=== PATIENT | male | born 1950 | race Caucasian/White ===

== ENCOUNTER 2019-06-10 10:47 | Emergency (ER) | payer MEDICARE, OTHER, SELFPAY ==
[2019-06-10] VITALS (8 sets, daily range): BP systolic 108–135; BP diastolic 72–80; PULSE 56–100; RESP 14–20; TEMP 36; O2SAT 96–100
--- NOTE | ~2019-06-10 | XR_ITS ---
EXAMINATION: XR chest 1V portable DATE: 06/10/2019 11:24 INDICATION: Cardiac arrest TECHNIQUE: frontal view of the chest was obtained. COMPARISON: None FINDINGS: Pulmonary vascular congestion in the lower lung zones with increased opacities in the left lower lung zone which could represent pulmonary edema, pneumonia, aspiration and/or atelectasis. No pleural eff usion or pneumothorax. Heart size within normal limits for AP technique. Retrocardiac opacity which c ould represent a hiatal hernia termination of shadows from tortuous aorta and large right atrium. Wid ening of the right acromioclavicular joint consistent with age-indeterminate acromioclavicular joint separation. IMPRESSION: 1. Increased opacities in the left lower lung zone which could represent mild pulmonary edema, pneumo nancy, aspiration, atelectasis or some combination thereof. 2. Possible hiatal hernia. Reviewed, dictated and finalized at location A. GEMENT EXECUTIVE IMPRESSION: 1. Increased opacities in the left lower lung zone which could represent mild p ulmonary edema, pneumonia, aspiration, atelectasis or some combination thereof. 2. Possible hiatal hernia.
--- NOTE | 2019-06-10 10:55 | ED.ARRPALP ---
HPI - Arrhythmia/Palpitations General Chief Complaint: Arrhythmia/Palpitations Stated Complaint: post cardiac arrest Time Seen by Provider: 06/10/19 10:47 Source: patient, EMS and RN notes reviewed Mode of arrival: EMS Limitations: no limitations History of Present Illness HPI narrative: Pt is a 69 y/o male presenting to the ED c/o Cardiac arrest. EMS state the pt presented to an earlier today after experiencing CP starting this morning. Per EMS, the pt had a witnessed collapse at the and went unresponsive and was found to be in V-Fib. EMS state they shocked the pt after CPR was started which immediately brought him into sinus Tachycardia and then administered Amiodarone. Per EMS, the pt has a Hx of A Fib. Pt reports his CP has resolved but is now reporting confusion and nausea. Pt states he faintly remembers going to the but does not remember much beyond that. Pt denies SOB. Onset (ago): unknown Arrhythmia history: atrial fibrillation Associated symptoms: chest pain (Resolved), nausea and other (Confusion) Related Data Home Medications Medication Instructions Recorded Confirmed No Home Medications 06/10/19 06/10/19 Allergies Allergy/AdvReac Type Severity Reaction Status Date / Time latex Allergy Unknown SKIN Verified 06/10/19 11:05 IRRITATION Review of Systems Review of Systems: All systems reviewed & are unremarkable except as noted in HPI and below Cardiovascular: Cardiovascular: Reports chest pain (Resolved) Gastrointestinal: Gastrointestinal: Reports nausea Neurologic: Reports confusion and Reports other (Unresponsive (resolved)) [facility] Past Medical History Medical History Arthritis Osteoarthritis cervical spine RBBB Restless leg syndrome Surgical History Surgical History No significant past surgical history Family History Family History Mother Patient's mother is in good health, Onset Age: 82 Sibling Patient's sister is in good health, Onset Age: 56 Patient's brother is in good health, Onset Age: 68 Father Family history of diabetes mellitus in first degree relative, Onset Age: 87 Patient's father is Social History Social History Smoking status: Never smoker Alcohol intake: never Gender identity (if verbalized by the patient): Male Exam Const: General: alert, acute distress (Mild) and ill appearing Nutritional Appearance: well nourished Other: Elderly HENMT: Mouth: Yes lip normal Eyes: Conjunctivae: conjunctivae normal Resp: Effort & Inspection: normal respiratory effort Auscultation: clear to auscultation bilaterally Cardio: Rhythm: abnormal rhythm irregularly irregular Back/Spine/Pelvis: Other: Full ROM Skin: General skin exam: normal color Other: Warm; Dry Neuro: General: patient oriented x3 Speech: normal speech Extrem: General: full ROM Psych: Mental Status: mental status grossly normal Affect: normal affect Course Vital Signs Vital signs: Vital Signs Temperature 36.0 C L 06/10/19 10:58 Pulse Rate 100 06/10/19 10:58 Respiratory Rate 14 06/10/19 10:58 Blood Pressure 108/80 06/10/19 10:58 Pulse Oximetry 96 06/10/19 10:58 Temperature 36.0 C L 06/10/19 10:58 Pulse Rate 66 06/10/19 16:09 Respiratory Rate 20 06/10/19 16:09 Blood Pressure 117/76 06/10/19 16:09 Pulse Oximetry 99 06/10/19 16:09 MDM - Arrhythmia/Palpitations MDM Narrative Medical decision making narrative: He had a v-fib arrest while at urgent care. He was defibrillated with conversion to a-fib and given a bolus of amiodarone. While here he converted to NSR. He asked to be transferred to [place]. The transfer was arranged, but no bed available. Medical Records Attestation: I reviewed the micheal
--- NOTE | 2019-06-10 11:07 | ECG_ITS ---
Measurements Intervals [place] Rate: 112 P: CT: 0 QRS: -26 QRSD: 116 T: 29 QT: 351 QTc: 480 Interpretive Statements ATRIAL FIBRILLATION WITH RAPID VENTRICULAR RESPONSE INCOMPLETE RIGHT BUNDLE BRANCH BLOCK MINIMAL Q WAVES- LATERAL LEADS BASELINE ARTIFACT- I, II, AVR ABNORMAL ECG Electronically Signed On 06-10-2019 11:17:36 [place]AN by Eddie Coombs D.O.
[2019-06-10 11:21] LABS: Basophils Percent Auto 0.6 % (0.2-1.2); Eosinophils Absolute Auto 0.2 K/mm3 (0-0.3); Eosinophils Percent Auto 3.4 % (0-4.4); Hemoglobin 14.2 g/dL (14.0-18.0); Immature Granulocyte Absolute 0.08 K/mm3 (0.00-0.031); Immature Granulocyte Percent A 1.3 % (0-0.5); Lymphocytes Absolute Auto 2.29 K/mm3 (0.9-3.2); Lymphocytes Percent Auto 36.9 % (18.3-44.2); Mean Corpuscular Hemoglobin 30.8 pg (26-34); Mean Corpuscular Volume 93.3 fl (80-100); Mean Platelet Volume 9.2 fl (7.4-10.4); Monocytes Absolute Auto 0.5 K/mm3 (0.1-0.6); Monocytes Percent Auto 7.6 % (2.6-8.5); Neutrophils Absolute Auto 3.1 K/mm3 (1.3-6.7); Neutrophils Percent Auto 50.2 % (45.5-73.1); Platelet Count Result 187 k/mm3 (150-375); Red Blood Count 4.61 M/mm3 (4.6-6.20); Red Cell Distribution Width 13.6 % (11.5-14.5); White Blood Count 6.2 K/mm3 (4.5-10.0)
[2019-06-10 11:32] LABS: INR 1.1; Partial Thromboplastin Time 28.1 SECONDS (22.3-36.8); Prothrombin Time 13.5 Seconds (11.1-14.7)
[2019-06-10 11:34] LABS: Blood Urea Nitrogen 18 mg/dL (9-20); Calcium 8.6 mg/dL (8.4-10.2); Carbon Dioxide 24 mmol/L (22-30); Chloride 105 mmol/L (98-107); Estimated Glomerular Filt Rate > 60; Glucose 179 mg/dL (75-110); Potassium 3.3 mmol/L (3.4-5.0); Sodium 140 mmol/L (137-145)
[2019-06-10] MEDS: ONDANSETRON INJ 4 MG/2 ML VIAL IV PUSH (11:46)
[2019-06-10 11:47] LABS: NT Pro B Type Natriuretic Pept 108 PG/ML (5-100)
--- NOTE | 2019-06-10 12:23 | ECG_ITS ---
Measurements Intervals [place] Rate: 57 P: 29 MO: 180 QRS: -26 QRSD: 115 T: 51 QT: 428 QTc: 418 Interpretive Statements SINUS BRADYCARDIA INCOMPLETE RIGHT BUNDLE BRANCH BLOCK BORDERLINE ECG Electronically Signed On 06-10-2019 18:41:10 RESTAURANT MAINTENANCE TECHNICIAN by Eddie Coombs D.O.
--- NOTE | 2019-06-10 14:33 | ED.GENADULT ---
HPI - General Adult General Chief complaint: Arrhythmia/Palpitations Stated complaint: post cardiac arrest Time Seen by Provider: 06/10/19 10:47 Source: family () Mode of arrival: other (Private vehicle) Limitations: no limitations and physical limitation History of Present Illness HPI narrative: 69-year-old male arrived to the [facility] approximately 1019 this a.m. and signed into the kiosks at the [facility]. Shortly after arrival patient's came up to the registrar tapped on the glass and stated that her went unresponsive. The register notified myself as well as the nurses that there was an unresponsive patient in the front of the waiting room. When we went out to the waiting room patient was limp, unresponsive not responding to painful stimuli. Patient will had agonal breathing. Patient was lowered to the floor and there was no pulse felt so CPR was started by this provider. Approximately 4 rounds of CPR was provided to the patient by this provider as well as Francisco Lieberman RN. 911 was contacted. JAYLENE Dye obtain the crash cart and the Ambu bag was applied to the patient while hooked up to 25 L of O2. On arrival of EMS CPR continued. They applied the AED and patient was shocked once. After about 1 shock, 1 epi that was given by EMS and approximately 6 rounds of CPR. Patient started to flutter his eyes. A pulse was obtained. Patient was breathing on his own. Patient was put on a nonrebreather at 15 L. An IO was placed by EMS to the left lower extremity. An 18-gauge IV was started by Francisco Lieberman to the left AC. According to patient's patient was coming in today with complaints of chest pain that started this morning as well as hypertension. Patient did start to wake up and talk to this provider. Patient states that he did have a history of hypertension but denies any medication. Patient denies any history of an MD or stroke in the past. Patient was denying any chest pain at the time when he woke up. Patient was assisted to the EMS stretcher by EMS personnel. Patient was sitting up awake, alert and talking prior to leaving the [facility]. Patient did have an episode of nausea and vomiting prior to leaving. This provider attempted to call [facility] and spoke with Dr. Taylor and let him know about the cardiac arrest patient that was in the [facility] waiting room that is in route. Discussed with him at the time I did not know the patient's name and only had a brief history. Notified him that we were able to get out of his that he is allergic to sulfa and he does have a history of hypertension but no meds. Patient was originally coming in today with complaints of chest pain and high blood pressure. Patient would be in route to [facility] for further evaluation by EMS. Related Data Home Medications Medication Instructions Recorded Confirmed No Home Medications 06/10/19 06/10/19 Allergies Allergy/AdvReac Type Severity Reaction Status Date / Time latex Allergy Unknown SKIN Verified 06/10/19 11:05 IRRITATION Review of Systems Review of Systems: Narrative: CONSTITUTIONAL: Denies fever, chills, or sweats. EYES: Denies visual changes, redness, or discharge. ENT: Denies rhinorrhea, congestion, sore throat, or otalgia. CARDIOVASCULAR: Positive chest pain, palpitations, denies edema. RESPIRATORY: Denies cough or dyspnea. GASTROINTESTINAL: Denies abdominal pain, nausea, vomiting, or diarrhea. GENITOURINARY: Denies dysuria or hematuria. SKIN: Denies rash or itching. MUSCULOSKELETAL: Denies back pain, joint pain, or myalgia. NEUROLOGIC: Denies headache, numbness, or weakness. PSYCHIATRIC: Denies anxiety or depression. [facility] Past Medical History Medical History Arthritis Osteoarthritis cervical spine RBBB Restless leg syndrome Surgical History Surgical History No signific
--- NOTE | 2019-06-10 17:29 | PC.NURSE ---
[facility] here to transport patient to [facility]. Assuming care at this time.
== END 2019-06-10 17:35 | disposition short-term general hospital (02) ==
PROVIDERS: Emergency Provider Emergency Medicine; PCP Emergency Medicine
DX: I46.9 Cardiac arrest, cause unspecified (principal); G25.81 Restless legs syndrome; I48.91 Unspecified atrial fibrillation; I45.10 Unspecified right bundle-branch block; R94.31 Abnormal electrocardiogram [ECG] [EKG]; R91.8 Other nonspecific abnormal finding of lung field; R00.1 Bradycardia, unspecified
CPT/HCPCS: 36415; 71045; 80048; 83880; 84484; 85025; 85610; 85730; 93005; 96374; 99291; J2405

== ENCOUNTER 2019-09-26 09:56 | Outpatient (CLI) | payer MEDICARE, OTHER, SELFPAY ==
[2019-09-26 10:58] LABS: Alanine Aminotransferase 43 U/L (4-50); Albumin Level 4.1 g/dL (3.5-5.1); Alkaline Phosphatase 276 U/L (38-126); Aspartate Amino Transferase 36 U/L (17-59); Bilirubin,Total 0.7 mg/dL (0.2-1.3); Blood Urea Nitrogen 20 mg/dL (9-20); Calcium 9.3 mg/dL (8.4-10.2); Carbon Dioxide 28 mmol/L (22-30); Chloride 103 mmol/L (98-107); Cholesterol 170 mg/dL (0-200); Estimated Glomerular Filt Rate > 60; Glucose 101 mg/dL (75-110); HDL Direct 41 mg/dL; Sodium 139 mmol/L (137-145); Triglycerides 61 mg/dL (<150)
[2019-09-26 11:17] LABS: LDL Cholesterol Direct 92 mg/dL
[2019-09-29 13:30] LABS: Vitamin D 1,25 (OH)2 Total 61 pg/mL (18-72); Vitamin D2 1,25 (OH)2 <8 pg/mL; Vitamin D3 1,25 (OH)2 61 pg/mL
== END 2019-09-26 09:57 | disposition home or self-care (01) ==
PROVIDERS: PCP Emergency Medicine; Visit Provider Emergency Medicine
DX: Z13.6 Encounter for screening for cardiovascular disorders (principal); E55.9 Vitamin D deficiency, unspecified; E78.5 Hyperlipidemia, unspecified
CPT/HCPCS: 36415; 80053; 80061; 82652

== ENCOUNTER 2019-09-29 11:38 | Outpatient (CLI) | payer MEDICARE, OTHER, SELFPAY ==
--- NOTE | ~2019-09-29 | XR_ITS ---
XR knee LT 2V DATE: 09/29/2019 12:04 INDICATION: Generalized pain of left knee after fall 5 weeks ago TECHNIQUE: AP and lateral views COMPARISON: None FINDINGS: Superior pole patellar enthesopathy at quadriceps tendon insertion. There is minimal periar ticular spurring of the patella. The joint spaces are well preserved. No radiopaque intra-articular l oose body or chondrocalcinosis. No fracture, dislocation, periosteal reaction or bone destruction or joint effusion. IMPRESSION: Superior pole patellar enthesopathy Minimal osteoarthritis at patellofemoral joint Reviewed, dictated and finalized at location A.
--- NOTE | ~2019-09-29 | XR_ITS ---
XR shoulder LT min 2V DATE: 09/29/2019 12:04 INDICATION: Left shoulder pain following fall 5 weeks ago TECHNIQUE: 4 views COMPARISON: None FINDINGS: There is a left-sided transvenous pacemaker device. No fracture, dislocation, periosteal re action, bone destruction or abnormal soft tissue calcification of the left shoulder. IMPRESSION: No significant abnormality of left shoulder Reviewed, dictated and finalized at location A.
== END 2019-09-29 11:39 | disposition home or self-care (01) ==
PROVIDERS: PCP Emergency Medicine; Visit Provider Emergency Medicine
DX: M25.562 Pain in left knee (principal); M25.512 Pain in left shoulder; M76.52 Patellar tendinitis, left knee; M17.12 Unilateral primary osteoarthritis, left knee
CPT/HCPCS: 73030; 73560

== ENCOUNTER 2019-10-23 13:40 | Outpatient (CLI) | payer MEDICARE, OTHER, SELFPAY ==
--- NOTE | ~2019-10-23 | XR_ITS ---
EXAMINATION: XR hip BI 2V w AP pelvis EXAM DATE: 10/23/2019 14:25 INDICATION: Initial encounter following injury, with pain of the pelvis, hips. TECHNIQUE: Each hip imaged independently (separate right and also left hip) 'frog leg' and frontal p rojections for interpretation. Frontal projection pelvis. There is no prior study for comparison. FINDINGS: No radiographic evidence of hip avascular necrosis. There is moderate symmetric bilateral hip primary osteoarthritis. There are no acute fractures or dislocations identified. There is no sub cutaneous gas. Calcifications in the pelvis are believed to be phleboliths. There are no radiopaque foreign bodies. IMPRESSION: 1. Hip, pelvis exam without acute osseous findings. 2. Moderate symmetric hip osteoarthritis. Reviewed, dictated and finalized at location B.
--- NOTE | ~2019-10-23 | XR_ITS ---
EXAMINATION: XR wrist RT min 3V EXAM DATE: 10/23/2019 14:25 INDICATION: Initial encounter following injury, with pain of the right wrist. TECHNIQUE: Right wrist frontal, frontal with ulnar deviation, oblique and lateral projections obtain ed and reviewed. There is no prior study for comparison. FINDINGS: Possible mild widening of the scapholunate joint space. There is mild triscaphe and 1st ca rpometacarpal joint primary osteoarthritis. There are no bony erosions identified. There are no acute fractures or dislocations identified. There is no subcutaneous gas. The soft tissue is unremarkabl e. There are no radiopaque foreign bodies. IMPRESSION: 1. Mild right wrist osteoarthritis. 2. 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 Reviewed, dictated and finalized at location B.
--- NOTE | ~2019-10-23 | XR_ITS ---
EXAMINATION: XR hand LT min 3V, XR wrist LT min 3V DATE: 10/23/2019 14:25 INDICATION: Left hand and wrist pain post fall TECHNIQUE: 1. Posteroanterior, ulnar deviation, oblique, and lateral views of the left wrist were obtained. 2. Dorsal palmar, oblique and lateral views of the left hand were obtained. COMPARISON: None. FINDINGS: Alignment of the hand and wrist are normal. No fracture identified. Polyarticular osteoarthritis, mo derate at the first carpometacarpal, first metacarpophalangeal and second and third distal interphala ngeal joints and mild at the triscaphe, midcarpal and remaining distal interphalangeal joints. Small. Likely degenerative loose osteochondral body at the ulnar side of the first carpometacarpal joint. N o focal soft tissue swelling. IMPRESSION: 1. Moderate polyarticular osteoarthritis. No acute osseous abnormality. Reviewed, dictated and finalized at location A. IMPRESSION: 1. Moderate polyarticular osteoarthritis. No acute osseous abnormality.
== END 2019-10-23 13:41 | disposition home or self-care (01) ==
PROVIDERS: PCP Emergency Medicine; Visit Provider Emergency Medicine
DX: R60.9 Edema, unspecified (principal); M79.606 Pain in leg, unspecified; M16.0 Bilateral primary osteoarthritis of hip; M19.042 Primary osteoarthritis, left hand; M19.032 Primary osteoarthritis, left wrist; M19.031 Primary osteoarthritis, right wrist
CPT/HCPCS: 73110; 73130; 73521

== ENCOUNTER 2019-11-15 09:46 | Outpatient (CLI) | payer MEDICARE, OTHER, SELFPAY ==
--- NOTE | ~2019-11-15 | XR_ITS ---
EXAMINATION: XR fl inj shoulder LT - MR/CT DATE: 11/15/2019 10:33 INDICATION: Left shoulder pain. TECHNIQUE: A time-out was performed to verify the patient's name, date of , and procedure to b e performed. The procedure including the risks, benefits, and alternatives was discussed with the pat ient. Risks discussed included bleeding and infection. The patient understood the risks and agreed to proceed. The skin overlying the left glenohumeral joint was prepped and draped in usual sterile fash ion. Anesthetic was administered with 1% lidocaine subcutaneously. A 22 G needle was advanced under fluoroscopic guidance into the joint. Subsequently, injectate consisting of 12 mL of 1% lidocaine a nd 1:2 Omnipaque 240 was instilled. The needle was removed and the entry site was cleaned and dresse d. There were no immediate complications. Fluoroscopy exposure time was 0.1 minutes. The total numbe r of images was 3. FINDINGS: Real-time fluoroscopy demonstrates the needle and contrast in the left glenohumeral joint. IMPRESSION: 1. Successful left glenohumeral joint injection of contrast for subsequent CT arthrography. Reviewed, dictated and finalized at location A. IMPRESSION: 1. Successful left glenohumeral joint injection of contrast for subsequent CT a rthrography.
--- NOTE | ~2019-11-15 | CT_ITS ---
EXAMINATION: CT shoulder LT w con DATE: 11/15/2019 10:39 INDICATION: Left shoulder pain. TECHNIQUE: Computed tomography (CT) of the left shoulder was performed without intravenous contrast a fter intra-articular injection of contrast (CT arthrogram). Automated exposure control and iterative reconstruction technique were employed. The dose-length product was 245.73 mGy-cm. COMPARISON: Left shoulder radiographs 06/29/2019 FINDINGS: The acromion undersurface is curved in morphology (type II). There is mild acromial clavicu lar joint osteoarthritis. Subacromial spurring is noted. There is a full-thickness tear of the juncti on of supraspinatus and infraspinatus tendons measuring 5 mm anterior to posterior by 3.0 cm proximal to distal. There is a bursal sided partial-thickness tear of posterior infraspinatus tendon. There i s no asymmetric fatty atrophy of the rotator cuff muscle bellies. Biceps tendon is in bicipital groov e. The glenoid cartilage is normal. The humeral head cartilage is normal. There is contrast in the gl enohumeral joint and subacromial/subdeltoid bursa. A left chest pacer is noted. IMPRESSION: 1. Full-thickness rotator cuff tear. 2. Mild acromioclavicular joint osteoarthritis. Reviewed, dictated and finalized at location A.
== END 2019-11-15 09:47 | disposition home or self-care (01) ==
PROVIDERS: PCP Emergency Medicine; Visit Provider Orthopaedic Surgery
DX: M19.012 Primary osteoarthritis, left shoulder (principal); M75.122 Complete rotator cuff tear or rupture of left shoulder, not specified as traumatic
CPT/HCPCS: 23350; 73201; 77002; Q9966; Q9967

== ENCOUNTER 2020-01-08 11:51 | Outpatient (CLI) | payer MEDICARE, OTHER, SELFPAY ==
--- NOTE | 2020-01-08 12:08 | ECG_ITS ---
Measurements Intervals [place] Rate: 60 P: 158 OR: 179 QRS: -22 QRSD: 105 T: 35 QT: 398 QTc: 398 Interpretive Statements ELECTRONIC ATRIAL PACEMAKER INCOMPLETE RIGHT BUNDLE BRANCH BLOCK BORDERLINE ECG Electronically Signed On 01-08-2020 13:06:44 CDT by Eddie Coombs D.O.
== END 2020-01-08 11:52 | disposition home or self-care (01) ==
PROVIDERS: PCP Emergency Medicine; Visit Provider Emergency Medicine
DX: I49.01 Ventricular fibrillation (principal); I45.10 Unspecified right bundle-branch block; R94.31 Abnormal electrocardiogram [ECG] [EKG]; Z95.0 Presence of cardiac pacemaker
CPT/HCPCS: 93005

== ENCOUNTER 2020-03-05 00:06 | Outpatient (CLI) | payer MEDICARE, OTHER, SELFPAY ==
[2020-03-05 19:47] LABS: SARS-CoV-2 RNA PCR Negative
== END 2020-03-05 00:07 | disposition home or self-care (01) ==
LOC: ANHCOVIDDT 00:06
PROVIDERS: PCP Emergency Medicine; Visit Provider Orthopaedic Surgery
DX: Z01.812 Encounter for preprocedural laboratory examination (principal); Z20.828 Contact with and (suspected) exposure to other viral communicable diseases
CPT/HCPCS: 87635; C9803; U0003

== ENCOUNTER 2020-03-08 00:04 | Day surgery (SDC) | payer MEDICARE, OTHER, SELFPAY ==
[2020-03-04 15:42] VITALS: BMI 23.6
[2020-03-08] VITALS (7 sets, daily range): BP systolic 149–164; BP diastolic 73–93; PULSE 62–73; RESP 14–20; TEMP 36.2–36.9; O2SAT 94–98
[2020-03-08] MEDS: CELECOXIB 200 MG CAPSULE PO (07:07)
[2020-03-08] MEDS: ACETAMINOPHEN 500 MG TABLET 1000 MG PO (07:07)
[2020-03-08] MEDS: LACTATED RINGERS 1,000 ML 30 ML IV CONT ×2 (07:08→09:19)
--- NOTE | 2020-03-08 07:13 | WPDANESEPPF ---
Anes - Initial Pre Proc Eval Procedure: Operation Date: 03/08/20 07:30 Proposed Procedures p Left Open Rotator Cuff Repair - Magdy Esqueda MD Date/Time: 03/08/20 07:13 Surgeon: Madgy Esqueda MD Pre Op Diagnosis: left rotator cuff tear Patient Data Age: 70 Gender: M Height: 5 ft 10 in Weight: 74.85 kg Allergies Allergy/AdvReac Type Severity Reaction Status Date / Time No Known Allergies Allergy Verified 03/08/20 06:23 Home Medications Medication Instructions Recorded Confirmed Type vdmywhys-umb-lqnfz acid 300 1 tablet PO DAILY 06/23/19 03/08/20 History mcg-lycopene 600 mcg-lutein 300 mcg tablet glucosamine sulfate 500 mg tablet 500 mg PO DAILY tablet 11/02/19 03/08/20 History atorvastatin 80 mg tablet 80 mg PO DAILY tablet 11/03/19 03/08/20 History metoprolol tartrate 25 mg tablet 6.25 mg PO BID tablet 11/03/19 03/08/20 History acetaminophen 500 mg capsule 500 mg PO Q6H PRN 11/29/19 03/08/20 History aspirin 81 mg tablet,delayed 81 mg PO DAILY 11/29/19 03/08/20 History release chlorhexidine gluconate 4 % 1 applic TOPICAL ONCE #237 ml 01/18/20 03/04/20 Rx topical liquid Patient hx anesthesia problems: none Family hx anesthesia problems: none PMFSH Past Medical History Medical History Arthritis ASHD (arteriosclerotic heart disease) Fall HLD (hyperlipidemia) 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 Knee pain, left Osteoarthritis cervical spine Preoperative clearance RBBB Restless leg syndrome Rotator cuff tear, left Scapho-lunate dissociation Shoulder pain, left Transmural acute inferior myocardial infarction, initial hospitalization Ventricular fibrillation Vision abnormalities Surgical History Surgical History No significant past surgical history Family History Family History Mother Patient's mother is in good health, Onset Age: 82 Sibling Patient's sister is in good health, Onset Age: 56 Patient's brother is in good health, Onset Age: 68 Father Family history of diabetes mellitus in first degree relative, Onset Age: 87 Patient's father is Social History Social History Smoking packs per day: 1 Smoking cigarettes per day: 20.0 Years smoked: 10 Smoking pack-years: 10.00 Smoking status: Former smoker Tobacco type: cigarettes Smoking end date: 04/26/79 Alcohol intake: never Living arrangements: with family Gender identity (if verbalized by the patient): Male Spiritual care concerns: No Anes - Eval Final PreProcedure Day of Procedure 03/08/20 07:13 Patient weight: normal Heart: regular rate and rhythm Lungs: clear to auscultation Airway: Mallampati scale class II Neurological: alert and oriented Last oral intake: >/= 8 hours ASA classification: III Emergent: no Anesthetic plan: proceed Anesthesia type and monitoring: general ETT and standard monitoring Other findings: magnet on defib interrogate post procedure Informed Consent: The patient's anesthetic plan and its attendant risks and benefits were discussed with the patient/family/POA. Questions were solicited and answers provided to the satisfaction of the patient/family/POA.
--- NOTE | 2020-03-08 07:28 | WPDHPUPDATE1 ---
History and Physical Update Update Date/Time: 03/08/20 07:28 History and Physical has been reviewed, including an updated exam of the patient. There are NO changes in the patient's condition. Risks, benefits, and alternatives have been discussed and questions answered. Patient agrees to proceed with procedure.
[2020-03-08] MEDS: ceFAZolin 2 GM/D5W 50 ML 2 GM/50 ML BAG IVPB (07:37)
--- NOTE | 2020-03-08 08:25 | WPDANESPNB ---
Anes - Peripheral Nerve Block Date/Time: 03/08/20 08:25 I have discussed with the patient/family/POA the placement of a peripheral nerve block for post-operative pain management, including associated risks, benefits, complications, and side effects. Alternative methods of post-operative analgesia were detailed. Questions were solicited and answers provided to the satisfaction of the patient/family/POA. Time-Out: A pre-procedural Time-Out was completed immediately before starting the procedure and confirmed: Patient Identification, Site, Procedure, Patient Position and the Availability of Requisite Equipment. Clinical Indications: Acute post-operative pain management requested by the operative surgeon. Nerve Block Insertion Note Anes-nerve block: interscalene left Patient position: other (sitting) Skin prep: chlorhexidine Needle: 22 gauge, stimulating, insulated echogenic needle. Needle length: 50 mm Technique: nerve stimulation lost at (mA) (0.3) and ultrasound Technique comment: mid2mg [id number] Injectate: bupivacaine 0.5% with epi 5 mcg/ml (30ml no epi) and dexamethasone (mg) (4) Observations: tolerated well Complications: none Procedure start time:: 719 Procedure end time:: 727
--- NOTE | 2020-03-08 08:41 | SUR.OPER ---
Patient stated in preop, during initial interview with this manager construction, that strength and mobility is limited in left upper extremity prior to anesthesia block and procedure. Patient stated that this is residual complications from previous falls/injuries.
--- NOTE | 2020-03-08 09:02 | PM.PROC ---
Procedure Note - Detailed Date of procedure: 03/08/20 Pre-op diagnosis: left rotator cuff tear Post-op diagnosis: same Procedure performed: REPAIR OF LEFT ROTATOR CUFF Description of procedure: THE PATIENT WAS TAKEN TO THE OPERATING ROOM AND THEN INTUBATED AND PLACED IN THE BEACH CHAIR POSITION. THE LEFT UPPER EXTREMITY WAS PREPPED AND DRAPED IN THE NORMAL STERILE FASHION. AN INCISION WAS MADE IN BETWEEN THE MODESTO-LATERAL ACROMION AND THE AC JOINT. THE FASCIA WAS IDENTIFIED. NEXT A MINI OPEN INCISION WAS MADE THROUGH THE DELTOID MUSCLE EXPOSING THE SUBACROMIAL SPACE. A LIMITED ACROMIOPLASTY WAS PREFORMED. THE ROTATOR CUFF WAS IDENTIFIED. THERE WAS A FULL THICKNESS TEAR TO A LARGE PART OF THE CUFF. THERE WAS NO RETRACTION. THERE WAS ALSO A VERTICAL COMPONENT TO THE TEAR AT THE JUNCTION OF THE INFRASPINATUS AND THE SUPRASPINATUS THE TEAR MEASURED ABOUT 2 CM FROM ANTERIOR TO POSTERIOR. THE GREATER TUBEROSITY WAS DEBRIDED TO BLEEDING BONE. 2 ATHREX 5.5 SUTURE ANCHORS WERE PLACED IN TO GOOD BONE AND HAD VERY GOOD BITES. CLARA-KAL TYPE REPAIRS WERE DONE TO THE ROTATOR CUFF AND THERE WAS GOOD APPROXIMATION TO THE GREATER TUBEROSITY. NEXT THE VERTICAL COMPONENT OF THE TEAR WAS APPROXIMATED WITH 0 VICRYL. THE REPAIR WAS EXCELLENT. THERE WAS NO IMPINGEMENT ON THE REPAIR FROM THE ACROMION WITH RANGE OF MOTION. THE WOUND WAS IRRIGATED WITH COPIOUS AMOUNTS OF ANTIBIOTIC SOLUTION. THE DELTOID MUSCLE WAS REPAIRED WITH #2 FIBER WIRE AND 0 VICRYL SUTURE. THE SUBCUTANEOUS LAYER WAS APPROXIMATED WITH 2-0 VICRYL. THE SKIN WAS APPROXIMATED WITH 3-0 QUIL AND DERMABOND. STERILE DRESSING WAS APPLIED. PATIENT WAS EXTUBATED. Anesthesia: GETA Surgeon: Magdy Esqueda MD Estimated blood loss (mL): 20 Complications: No immediate complications Condition: stable Disposition: PACU
== END 2020-03-08 11:20 | disposition home or self-care (01) ==
PROVIDERS: PCP Emergency Medicine; Visit Provider Orthopaedic Surgery
PROC: (CPT 23420; principal; 2020-03-08 07:30)
DX: S46.012A Strain of muscle(s) and tendon(s) of the rotator cuff of left shoulder, initial encounter (principal); W11.XXXA Fall on and from ladder, initial encounter; G89.18 Other acute postprocedural pain; I25.10 Atherosclerotic heart disease of native coronary artery without angina pectoris; E78.5 Hyperlipidemia, unspecified; I45.10 Unspecified right bundle-branch block; Z95.810 Presence of automatic (implantable) cardiac defibrillator; I25.2 Old myocardial infarction; G25.81 Restless legs syndrome; Z87.891 Personal history of nicotine dependence
CPT/HCPCS: 23410; 64415; A9270; C1713; J0330; J0690; J1100; J2250; J2370; J2405; J2704; J3010; J7120

== ENCOUNTER 2020-06-18 07:47 | Outpatient (CLI) | payer MEDICARE, OTHER, SELFPAY ==
[2020-06-18 08:20] LABS: Alanine Aminotransferase 20 U/L (4-50); Albumin Level 4.4 g/dL (3.5-5.1); Alkaline Phosphatase 106 U/L (38-126); Anion Gap 4 mmol/L (8-16); Aspartate Amino Transferase 30 U/L (17-59); Bilirubin,Total 0.6 mg/dL (0.2-1.3); Blood Urea Nitrogen 23 mg/dL (9-20); Calcium 9.2 mg/dL (8.4-10.2); Carbon Dioxide 34 mmol/L (22-30); Chloride 105 mmol/L (98-107); Cholesterol 201 mg/dL (0-200); Estimated Glomerular Filt Rate > 60; Glucose 96 mg/dL (75-110); HDL Direct 61 mg/dL; Potassium 4.2 mmol/L (3.4-5.0); Sodium 143 mmol/L (137-145); Triglycerides 101 mg/dL (<150)
[2020-06-18 08:31] LABS: LDL Cholesterol Direct 97 mg/dL
[2020-06-18 09:37] LABS: Prostate Specific Antigen 1.2 ng/mL (< OR = 4.0)
== END 2020-06-18 07:48 | disposition home or self-care (01) ==
PROVIDERS: PCP Emergency Medicine; Visit Provider Emergency Medicine
DX: E78.5 Hyperlipidemia, unspecified (principal); Z12.5 Encounter for screening for malignant neoplasm of prostate
CPT/HCPCS: 36415; 80053; 80061; 84153; G0103

== ENCOUNTER 2020-06-21 14:40 | Outpatient (CLI) | payer MEDICARE, OTHER, SELFPAY ==
--- NOTE | ~2020-06-21 | CT_ITS ---
EXAMINATION: CTA chest DATE: 06/21/2020 15:07 INDICATION: Thoracic aortic ectasia. TECHNIQUE: Computed tomographic angiography (CTA) of the chest was performed with 100 mL Omnipaque-35 0 intravenous contrast. Automated exposure control and iterative reconstruction technique were employ ed. The dose-length product was 274.94 mGy-cm. Maximum intensity projection 3D-reconstructions of the aorta and other arteries were constructed by the technologist on a separate workstation. COMPARISON: None. FINDINGS: The lungs demonstrate mild atelectasis. There is a 4 mm nodule in right upper lobe, likely benign. A calcified right lung nodule is consistent with old granulomatous disease. No pleural effusi on. There is normal. No pericardial effusion. There is a left chest wall pacer with leads in the righ t atrium and right ventricle. There is a 1.4 cm cyst in the liver. There is a 3.3 cm cyst in right ki dney. The aorta measures 4.3 cm at the sinuses of Valsalva, 3.6 cm at the sinotubular junction, 3.9 c m in the mid ascending aorta, 3.2 cm at the aortic isthmus, and 3.1 cm in mid descending aorta. There is mild thoracic spondylosis. There is mild chronic height loss of T7 and T8 vertebral bodies. IMPRESSION: 1. Ectasia of ascending aorta measuring up to 4.3 cm at the sinuses of Valsalva. Reviewed, dictated and finalized at location A. OFFICER IMPRESSION: 1. Ectasia of ascending aorta measuring up to 4.3 cm at the sinuses of Valsalva .
== END 2020-06-21 14:41 | disposition home or self-care (01) ==
LOC: ANHIMG 14:47
PROVIDERS: PCP Emergency Medicine; Visit Provider Internal Medicine Cardiovascular Disease
DX: I77.810 Thoracic aortic ectasia (principal)
CPT/HCPCS: 71275; Q9967

== ENCOUNTER → 2020-08-16 09:20 | Outpatient (CLI) | payer MEDICARE, OTHER, SELFPAY ==
--- NOTE | ~2020-08-16 | CT_ITS ---
EXAMINATION: CT lumbar spine wo con DATE: 08/16/2020 10:06 INDICATION: Lumbar radiculopathy with low back and leg pain. TECHNIQUE: Computed tomography (CT) of the lumbar spine was performed without intravenous contrast. A utomated exposure control and iterative reconstruction technique were employed. The dose-length produ ct was 571.86 mGy-cm. COMPARISON: None FINDINGS: Bilateral hypoplastic riblets at T12. 11 degree lumbar levoscoliosis measured between L2 and L4. Sagi ttal alignment is normal. Vertebral body heights are normal. No fracture. Moderate right-sided predom inant disc height loss at L3-L4. Mild disc height loss at L4-L5. 3.3 similar right renal cyst. 2 mm n onobstructing stone at the lower pole of the right kidney. Paravertebral soft tissues are otherwise u nremarkable. The following disc levels are specifically discussed: T12-L1: Disc is bulging. There is mild bilateral facet joint osteoarthritis. There is no neural shahid inal stenosis. There is mild central canal stenosis. L1-L2: Disc is bulging. There is mild to moderate bilateral facet joint osteoarthritis. There is mild bilateral neural foraminal stenosis. There is mild central canal stenosis. L2-L3: Disc is bulging. There is mild to moderate bilateral facet joint osteoarthritis. There is mild bilateral neural foraminal stenosis. There is mild to moderate central canal stenosis. L3-L4: Disc is bulging. There is mild hypertrophy of the ligamentum flavum. There is mild right and m ild to moderate left facet joint osteoarthritis. There is moderate right and mild to moderate left ne ural foraminal stenosis. There is moderate to severe central canal stenosis. L4-L5: Disc is bulging with right foraminal zone L4 inferior endplate osteophyte. There is mild hyper trophy of the ligamentum flavum. There is moderate left and mild to moderate right facet joint osteoa rthritis. There is moderate left and moderate to severe right neural foraminal stenosis. There is mod erate central canal stenosis. L5-S1: Disc is mildly bulging. There is mild bilateral facet joint osteoarthritis. There is moderate left and mild right neural foraminal stenosis. There is no central canal stenosis. IMPRESSION: 1. Moderate lumbar spondylosis. 2. 2 mm nonobstructing right renal stone. Reviewed, dictated and finalized at location A.
--- NOTE | ~2020-08-16 | XR_ITS ---
XR hip BI 2V w AP pelvis DATE: 08/16/2020 10:01 INDICATION: Lumbar radiculopathy, hip pain, knee pain TECHNIQUE: AP pelvis. AP and lateral views of each hip COMPARISON: 10/23/2019 pelvis and bilateral FINDINGS: Levoscoliosis and multilevel degenerative disc disease of the lumbar spine. The pubic symphysis and sacroiliac joints are intact. No pelvic fracture or bone destruction. No fracture, dislocation, avascular necrosis or bone destruction of either hip. Mild bilateral hip os teoarthritis. IMPRESSION: Mild bilateral hip osteoarthritis Degenerative disc disease and mild levoscoliosis of the lumbar spine Reviewed, dictated and finalized at location A.
--- NOTE | ~2020-08-16 | XR_ITS ---
EXAMINATION: XR knee RT min 4V DATE: 08/16/2020 10:01 INDICATION: Right knee pain. TECHNIQUE: 4 views of right knee were obtained. COMPARISON: None. FINDINGS: Bone alignment is normal. No fracture. There is mild tricompartmental osteoarthritis charac terized by tiny marginal osteophytes. There is a small knee joint effusion. IMPRESSION: 1. Mild right knee osteoarthritis. 2. Small right knee joint effusion. Reviewed, dictated and finalized at location B.
--- NOTE | ~2020-08-16 | XR_ITS ---
EXAMINATION: XR knee LT min 4V DATE: 08/16/2020 10:01 INDICATION: Left knee pain. TECHNIQUE: 4 views of left knee were obtained. COMPARISON: Left knee radiograph 09/29/2019 FINDINGS: Bone alignment is normal. No fracture. There is mild osteoarthritis of medial and patellofe moral compartments characterized by tiny marginal osteophytes. There is a moderate-sized knee joint e ffusion. IMPRESSION: 1. Mild left knee osteoarthritis. 2. Moderate-sized left knee joint effusion, worsened from 09/29/2019. Reviewed, dictated and finalized at location B.
== END ==
PROVIDERS: Visit Provider Nurse Practitioner Adult Health
DX: M16.0 Bilateral primary osteoarthritis of hip (principal); M51.36 Other intervertebral disc degeneration, lumbar region; M47.26 Other spondylosis with radiculopathy, lumbar region; N20.0 Calculus of kidney; M17.0 Bilateral primary osteoarthritis of knee; M25.461 Effusion, right knee; M25.462 Effusion, left knee
CPT/HCPCS: 72131; 73521; 73564

== ENCOUNTER 2021-04-01 07:08 | Outpatient (CLI) | payer MEDICARE, OTHER, SELFPAY ==
[2021-04-01 08:08] LABS: Alanine Aminotransferase 20 U/L (4-50); Albumin Level 4.5 g/dL (3.5-5.1); Alkaline Phosphatase 118 U/L (38-126); Anion Gap 7 mmol/L (8-16); Aspartate Amino Transferase 26 U/L (17-59); Bilirubin,Total 0.6 mg/dL (0.2-1.3); Blood Urea Nitrogen 23 mg/dL (9-20); Calcium 9.5 mg/dL (8.4-10.2); Carbon Dioxide 30 mmol/L (22-30); Chloride 102 mmol/L (98-107); Cholesterol 220 mg/dL (0-200); Estimated Glomerular Filt Rate > 60; Glucose 109 mg/dL (65-110); HDL Direct 75 mg/dL; Potassium 3.7 mmol/L (3.4-5.0); Sodium 139 mmol/L (137-145); Triglycerides 66 mg/dL (<150)
[2021-04-01 08:19] LABS: LDL Cholesterol Direct 115 mg/dL
== END 2021-04-01 07:09 | disposition home or self-care (01) ==
LOC: ANHLAB 07:12
PROVIDERS: PCP Emergency Medicine; Visit Provider Emergency Medicine
DX: Z13.6 Encounter for screening for cardiovascular disorders (principal); I25.10 Atherosclerotic heart disease of native coronary artery without angina pectoris
CPT/HCPCS: 36415; 80053; 80061

== ENCOUNTER 2021-10-03 00:42 | Day surgery (SDC) | payer MEDICARE, OTHER, SELFPAY ==
[2021-08-11 14:16] VITALS: BMI 23.1
[2021-09-30 11:42] VITALS: BMI 23.1
--- NOTE | 2021-10-02 13:59 | PM.HPGS ---
History of Present Illness History of Present Illness Consent: Risks, benefits, and alternatives have been discussed and questions answered. Patient agrees to proceed with procedure. Chief complaint: hx of colon polyps Narrative: Mannie Elaine is a 71 year old male With a history of polyps. His last colonoscopy was 3 years ago . Review of Systems Review of Systems: All systems reviewed & are unremarkable except as noted in HPI and below PMFSH Past Medical History Medical History Acute serous otitis media of left ear Arthritis Arthritis ASHD (arteriosclerotic heart disease) Chronic maxillary sinusitis Decreased hearing of both ears Fall HLD (hyperlipidemia) 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 Impacted cerumen of right ear Knee pain, left Left foot pain Osteoarthritis cervical spine Pain in left ear Plantar fasciitis of left foot Positive colorectal cancer screening using Cologuard test Preoperative clearance RBBB Restless leg syndrome Rotator cuff tear, left Scapho-lunate dissociation Seasonal allergic rhinitis due to pollen Shoulder pain, left Skin lesion of face Transmural acute inferior myocardial infarction, initial hospitalization Ventricular fibrillation Vision abnormalities Vitamin D deficiency Surgical History Surgical History No significant past surgical history Family History Family History Mother Patient's mother is in good health, Onset Age: 82 Sibling Patient's sister is in good health, Onset Age: 56 Patient's brother is in good health, Onset Age: 68 Father Family history of diabetes mellitus in first degree relative, Onset Age: 87 Patient's father is Social History Social History Smoking packs per day: 1 Smoking cigarettes per day: 20.0 Years smoked: 10 Smoking pack-years: 10.00 Smoking status: Former smoker Tobacco type: cigarettes Smoking end date: 04/26/79 Alcohol intake: former Substance use: never Substance use type: does not use Living arrangements: alone Gender identity (if verbalized by the patient): Male Spiritual care concerns: No Meds Home Medications and Allergies Home Medications Medication Instructions Recorded Confirmed Type wypaangz-gfd-vuqmn acid 300 1 tablet PO DAILY 06/23/19 09/30/21 History mcg-lycopene 600 mcg-lutein 300 mcg tablet (Centrum Silver Men) glucosamine sulfate 500 mg tablet 500 mg PO DAILY 11/02/19 09/30/21 History (Glucosamine) aspirin 81 mg tablet,delayed 81 mg PO DAILY 11/29/19 09/30/21 History release atorvastatin 80 mg tablet 80 mg PO DAILY #30 tabs 09/18/20 09/30/21 Rx metoprolol tartrate 25 mg tablet 12.5 mg PO DAILY #30 tabs 09/18/20 09/30/21 Rx sildenafil 25 mg tablet 25 mg PO DAILY PRN sexual activity 04/11/21 09/30/21 Rx #15 tabs Allergies Allergy/AdvReac Type Severity Reaction Status Date / Time No Known Allergies Allergy Verified 10/03/21 07:43 Exam Resp: Auscultation: clear to auscultation bilaterally Cardio: Rate: regular rate Rhythm: regular rhythm GI: GI Palp: Yes Soft to palpation and No Tenderness to palpation present (GI) Assessment and Plan Assessment and plan (1) Colon cancer screening: Code(s): Z12.11 - Encounter for screening for malignant neoplasm of colon Status: Acute Assessment and Plan: Colonoscopy with possible biopsy or polypectomy or cautery or injection of substances.
[2021-10-03 07:44] VITALS: BP 138/89; PULSE 66; RESP 16; TEMP 36.3; O2SAT 97
[2021-10-03 07:46] VITALS: BMI 23.3
[2021-10-03] MEDS: LACTATED RINGERS 1,000 ML 150 ML IV CONT (07:54)
--- NOTE | 2021-10-03 08:11 | WPDANESEPPF ---
Anes - Initial Pre Proc Eval Procedure: Operation Date: 10/03/21 08:30 Proposed Procedures p Screening Colonoscopy - Arnold Preciado MD Date/Time: 10/03/21 08:11 Surgeon: Arnold Preciado MD Pre Op Diagnosis: hx of colon polyps Patient Data Age: 71 Gender: M Height: 1.78 m Weight: 73.7 kg Last Vital Signs Temp 97.4 F L 10/03/21 07:44 Pulse 66 10/03/21 07:44 Resp 16 10/03/21 07:44 BP 138/89 10/03/21 07:44 Pulse Ox 97 10/03/21 07:44 O2 Del Method Room Air 10/03/21 07:44 Allergies Allergy/AdvReac Type Severity Reaction Status Date / Time No Known Allergies Allergy Verified 10/03/21 07:43 Home Medications Medication Instructions Recorded Confirmed Type irtzwrnq-odp-jphim acid 300 1 tablet PO DAILY 06/23/19 09/30/21 History mcg-lycopene 600 mcg-lutein 300 mcg tablet (Centrum Silver Men) glucosamine sulfate 500 mg tablet 500 mg PO DAILY 11/02/19 09/30/21 History (Glucosamine) aspirin 81 mg tablet,delayed 81 mg PO DAILY 11/29/19 09/30/21 History release atorvastatin 80 mg tablet 80 mg PO DAILY #30 tabs 09/18/20 09/30/21 Rx metoprolol tartrate 25 mg tablet 12.5 mg PO DAILY #30 tabs 09/18/20 09/30/21 Rx sildenafil 25 mg tablet 25 mg PO DAILY PRN sexual activity 04/11/21 09/30/21 Rx #15 tabs Patient hx anesthesia problems: none Family hx anesthesia problems: none Results Review: All pre-operative results and documents have been reviewed as part of the pre-operative evaluation. 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 Impacted cerumen of right ear Knee pain, left Left foot pain Osteoarthritis cervical spine Pain in left ear Plantar fasciitis of left foot Positive colorectal cancer screening using Cologuard test Preoperative clearance RBBB Restless leg syndrome Rotator cuff tear, left Scapho-lunate dissociation Seasonal allergic rhinitis due to pollen Shoulder pain, left Skin lesion of face Transmural acute inferior myocardial infarction, initial hospitalization Ventricular fibrillation Vision abnormalities Vitamin D deficiency Surgical History Surgical History No significant past surgical history Family History Family History Mother Patient's mother is in good health, Onset Age: 82 Sibling Patient's sister is in good health, Onset Age: 56 Patient's brother is in good health, Onset Age: 68 Father Family history of diabetes mellitus in first degree relative, Onset Age: 87 Patient's father is Social History Social History Smoking packs per day: 1 Smoking cigarettes per day: 20.0 Years smoked: 10 Smoking pack-years: 10.00 Smoking status: Former smoker Tobacco type: cigarettes Smoking end date: 04/26/79 Alcohol intake: former Substance use: never Substance use type: does not use Living arrangements: alone Gender identity (if verbalized by the patient): Male Spiritual care concerns: No Anes - Eval Final PreProcedure Day of Procedure 10/03/21 08:11 Patient weight: normal Heart: regular rate and rhythm Lungs: clear to auscultation Airway: Mallampati scale class II Neurological: alert and oriented Last oral intake: >/= 8 hours ASA classification: III Emergent: no Anesthetic plan: proceed Anesthesia type and monitoring: general GIVS and standard monitoring Results Review: All pre-operative results and documents have been reviewed as part of the pre-operative evaluation. Informed Consent: The patient's anestheti
[2021-10-03 08:43] VITALS: BP 95/61; PULSE 62; RESP 16; O2SAT 97
[2021-10-03 08:53] VITALS: BP 102/57; PULSE 65; RESP 23; O2SAT 96
[2021-10-03 09:03] VITALS: BP 105/71; PULSE 61; RESP 22; O2SAT 97
== END 2021-10-03 09:13 | disposition home or self-care (01) ==
PROVIDERS: PCP Emergency Medicine; Visit Provider Internal Medicine Gastroenterology
PROC: 0DJD8ZZ Inspection of Lower Intestinal Tract, Via Natural or Artificial Opening Endoscopic (ICD-10-PCS; CPT 45378; principal; 2021-10-03 08:30)
DX: Z12.11 Encounter for screening for malignant neoplasm of colon (principal); D12.5 Benign neoplasm of sigmoid colon; K57.30 Diverticulosis of large intestine without perforation or abscess without bleeding; K64.8 Other hemorrhoids; Z79.82 Long term (current) use of aspirin; M19.90 Unspecified osteoarthritis, unspecified site; I25.10 Atherosclerotic heart disease of native coronary artery without angina pectoris; I45.10 Unspecified right bundle-branch block; G25.81 Restless legs syndrome; E78.5 Hyperlipidemia, unspecified; Z95.810 Presence of automatic (implantable) cardiac defibrillator; E55.9 Vitamin D deficiency, unspecified; I25.2 Old myocardial infarction; I49.8 Other specified cardiac arrhythmias; Z87.891 Personal history of nicotine dependence
CPT/HCPCS: 45380; 45385; 88305; J2704; J7120

== ENCOUNTER 2021-10-10 07:31 | Outpatient (CLI) | payer MEDICARE, OTHER, SELFPAY ==
[2021-10-10 08:14] LABS: Alanine Aminotransferase 26 U/L (6-50); Albumin Level 4.5 g/dL (3.5-5.1); Alkaline Phosphatase 92 U/L (38-126); Anion Gap 7 mmol/L (8-16); Aspartate Amino Transferase 28 U/L (17-59); Bilirubin,Total 0.7 mg/dL (0.2-1.3); Blood Urea Nitrogen 24 mg/dL (9-20); Calcium 8.9 mg/dL (8.4-10.2); Carbon Dioxide 27 mmol/L (22-30); Chloride 106 mmol/L (98-107); Cholesterol 188 mg/dL (0-200); Estimated Glomerular Filt Rate > 60; Glucose 101 mg/dL (65-110); HDL Direct 70 mg/dL; Potassium 4.1 mmol/L (3.4-5.0); Sodium 140 mmol/L (137-145); Triglycerides 68 mg/dL (<150)
[2021-10-10 08:25] LABS: LDL Cholesterol Direct 75 mg/dL
[2021-10-10 08:43] LABS: Prostate Specific Antigen 1.4 ng/mL (< OR = 4.0)
== END 2021-10-10 07:32 | disposition home or self-care (01) ==
PROVIDERS: PCP Emergency Medicine; Visit Provider Emergency Medicine
DX: E78.5 Hyperlipidemia, unspecified (principal); Z12.5 Encounter for screening for malignant neoplasm of prostate
CPT/HCPCS: 36415; 80053; 80061; 84153; G0103

== ENCOUNTER 2022-01-06 07:13 | Outpatient (CLI) | payer MEDICARE, OTHER, SELFPAY ==
[2022-01-06 07:58] LABS: Alanine Aminotransferase 23 U/L (6-50); Albumin Level 4.8 g/dL (3.5-5.1); Alkaline Phosphatase 94 U/L (38-126); Anion Gap 14 mmol/L (8-16); Aspartate Amino Transferase 26 U/L (17-59); Bilirubin,Total 0.9 mg/dL (0.2-1.3); Blood Urea Nitrogen 24 mg/dL (9-20); Calcium 9.3 mg/dL (8.4-10.2); Carbon Dioxide 27 mmol/L (22-30); Chloride 104 mmol/L (98-107); Cholesterol 192 mg/dL (0-200); Estimated Glomerular Filt Rate > 60; Glucose 105 mg/dL (65-110); HDL Direct 68 mg/dL; Potassium 3.9 mmol/L (3.4-5.0); Sodium 145 mmol/L (137-145); Triglycerides 75 mg/dL (<150)
[2022-01-06 08:10] LABS: LDL Cholesterol Direct 78 mg/dL
== END 2022-01-06 07:14 | disposition home or self-care (01) ==
LOC: ANHLAB 07:15
PROVIDERS: PCP Emergency Medicine; Visit Provider Emergency Medicine
DX: E78.5 Hyperlipidemia, unspecified (principal)
CPT/HCPCS: 36415; 80053; 80061

== ENCOUNTER 2022-01-13 15:15 | Outpatient (CLI) | payer MEDICARE, OTHER, SELFPAY ==
--- NOTE | ~2022-01-13 | XR_ITS ---
EXAMINATION: XR chest 2V Exam Date/Time: 01/13/2022 15:25 CDT HISTORY: R05.8 - Other specified cough X 2 WKS, HX CARDIAC ARREST Comparison: 06/10/2019. RESULT: Lines, tubes, and devices: Left chest pacer/defibrillator with intact leads. Lungs and pleura: Bibasilar scar/atelectasis. Cardiomediastinal silhouette: Stable. Other: No acute osseous or upper abdominal finding. IMPRESSION: No acute cardiopulmonary process. Reviewed, dictated and finalized at location K.
== END 2022-01-13 15:16 | disposition home or self-care (01) ==
LOC: ANHIMG 15:17
PROVIDERS: PCP Emergency Medicine; Visit Provider Emergency Medicine
DX: R05.8 Other specified cough (principal)
CPT/HCPCS: 71046

== ENCOUNTER 2022-11-23 15:59 | Emergency (ER) | payer MEDICARE, OTHER, SELFPAY ==
--- NOTE | ~2022-11-23 | CT_ITS ---
EXAMINATION: CT abdomen pelvis wo con DATE: 11/23/2022 18:59 INDICATION: flank pain TECHNIQUE: Computed tomography (CT) of the abdomen and pelvis was performed without intravenous contr ast. Automated exposure control and iterative reconstruction technique were employed. The dose-length product was 478.66 mGy-cm. COMPARISON: None. FINDINGS: Lower thorax: Incompletely visualized pacing wires. Bibasilar scar/atelectasis. Moderate hiatal herni a. Liver: Normal. Biliary/Gallbladder: Dependent gallbladder hyperdensity may represent small stones or sludge, otherwi se normal appearing gallbladder. No bile duct dilation. Pancreas: Fatty infiltration. Spleen: Normal. Adrenals:No mass. Kidneys: Simple bilateral mid pole cysts. 5 mm nonobstructing left midpole calcification. Mild right pelviectasis and caliectasis. 3 mm calcification at the right UPJ. Mild bilateral perinephric strandi ng. GI tract: Colonic interposition. No small or large bowel dilation. Normal appendix. Diverticulosis wi thout diverticulitis. Mesentery/Peritoneum: No ascites, mass, or free air. Retroperitoneum: No mass. Atherosclerotic abdominal aortic and/or arterial calcifications. Pelvis: Pelvic organs are within normal limits. Soft Tissues: Soft tissues and body wall unremarkable. Bones: No acute osseous finding. IMPRESSION: 3 mm calcific aeration at the right UPJ causing mild obstructive uropathy. Reviewed, dictated and finalized at location K.
[2022-11-23 16:21] VITALS: BP 183/88; PULSE 62; RESP 16; TEMP 36.2; O2SAT 96
--- NOTE | 2022-11-23 19:00 | ED.ABDPAIN ---
HPI - Abdominal Pain General Chief Complaint: Abdominal Pain Stated Complaint: RLQ ABD PAIN SINCE 1515 Time Seen by Provider: 11/23/22 18:41 History of Present Illness HPI narrative: Patient is a 72-year-old male who presents ER with right-sided abdominal pain. Sudden onset around 3:30 in the afternoon. Reports it was a sharp pain without radiation. It caused him to be nauseous and have vomiting. Patient reports he had a colonoscopy that showed diverticulosis. No history of diverticulitis and no history of kidney stones. Pain has abated and he received some antinausea medicine from EMS. Denies fevers or chills or sweats. No urinary frequency urgency or dysuria. He has been without diarrhea. Reports earlier his pain was worse with physical movements and laying down flat. Related Data Home Medications Medication Instructions Recorded Confirmed qvmcyzfk-an-fvcev 300 mcg-K 60 1 tablet PO DAILY 06/23/19 08/04/22 mcg-lycop 600 mcg-lutein 300 mcg tablet (Centrum Silver Men) aspirin 81 mg tablet,delayed 81 mg PO DAILY 11/29/19 08/04/22 release Allergies Allergy/AdvReac Type Severity Reaction Status Date / Time No Known Allergies Allergy Verified 08/04/22 11:06 Review of Systems Review of Systems: All systems reviewed & are unremarkable except as noted in HPI and below Constitutional: Constitutional: Denies chills, Denies fatigue and Denies fever(s) ENT: Denies nasal congestion and Denies sore throat Cardiovascular: Cardiovascular: Denies chest pain, Denies rapid heart rate and Denies radiating jaw, neck or arm pain Respiratory: Respiratory: Denies cough and Denies dyspnea Gastrointestinal: Gastrointestinal: Reports abdominal pain, Denies diarrhea, Reports nausea and Reports vomiting Genitourinary: Genitourinary: Denies hematuria, Denies dysuria, Denies testicular pain and Denies urinary frequency [facility] Past Medical History Medical History Acute serous otitis media of left ear Arthritis Arthritis ASHD (arteriosclerotic heart disease) Chronic maxillary sinusitis Decreased hearing of both ears Fall HLD (hyperlipidemia) 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 Impacted cerumen of right ear Knee pain, left Left foot pain Osteoarthritis cervical spine Pain in left ear Plantar fasciitis of left foot Positive colorectal cancer screening using Cologuard test Preoperative clearance RBBB Restless leg syndrome Rotator cuff tear, left Scapho-lunate dissociation Seasonal allergic rhinitis due to pollen Shoulder pain, left Skin lesion of face Transmural acute inferior myocardial infarction, initial hospitalization Ventricular fibrillation Vision abnormalities Vitamin D deficiency Surgical History Surgical History No significant past surgical history Family History Family History Mother Patient's mother is in good health, Onset Age: 82 Sibling Patient's sister is in good health, Onset Age: 56 Patient's brother is in good health, Onset Age: 68 Father Family history of diabetes mellitus in first degree relative, Onset Age: 87 Patient's father is Social History Social History Smoking packs per day: 1 Smoking cigarettes per day: 20.0 Years smoked: 10 Smoking pack-years: 10.00 Smoking status: Former smoker Tobacco type: cigarettes Smoking end date: 04/26/79 Alcohol intake: former Substance use: never Substance use type: does not use Living arrangements: alone Gender identity (if verbalized by the patient): Male Spiritual care concerns: No Exam Narrative: GENERAL: Well-appearing, well-nourished, and in no acute distress. HEAD: Normocephalic, atraumatic. ENT: Mucous membranes moist. C
[2022-11-23 19:47] LABS: Appearance Urine Cloudy (Clear); Bacteria Urine None Seen /hpf; Bilirubin Urine Negative (Negative); Blood Urine 3+ (Negative); Color Urine Yellow (Yellow); Glucose Urine UA Trace mg/dL (Negative); Ketones Urine Negative (Negative); Leukocyte Esterase Ur Negative LEU/UL (Negative); Need Manual Microscopic Reviewed; Nitrate Urine Negative (Negative); Protein Urine Trace mg/dL (Negative); RBC Urine >100 /hpf (0-2); Squamous Epithelial Cell Urine Occasional /hpf (Few)
[2022-11-23 19:49] LABS: Add Urine Microscopic? YES
[2022-11-23 20:32] VITALS: BP 138/78; PULSE 64; RESP 16; O2SAT 95
== END 2022-11-23 20:34 | disposition home or self-care (01) ==
PROVIDERS: Emergency Provider Emergency Medicine; PCP Emergency Medicine
DX: N13.5 Crossing vessel and stricture of ureter without hydronephrosis (principal); I25.10 Atherosclerotic heart disease of native coronary artery without angina pectoris; I25.2 Old myocardial infarction; E78.5 Hyperlipidemia, unspecified; E55.9 Vitamin D deficiency, unspecified; G25.81 Restless legs syndrome; M47.812 Spondylosis without myelopathy or radiculopathy, cervical region; M19.90 Unspecified osteoarthritis, unspecified site; Z95.810 Presence of automatic (implantable) cardiac defibrillator; Z87.891 Personal history of nicotine dependence; Z79.82 Long term (current) use of aspirin
CPT/HCPCS: 74176; 81001; 87086; 99284

== ENCOUNTER 2022-12-11 07:02 | Outpatient (CLI) | payer MEDICARE, OTHER, SELFPAY ==
[2022-12-11 08:26] LABS: Alanine Aminotransferase 21 U/L (6-50); Albumin Level 4.3 g/dL (3.5-5.1); Alkaline Phosphatase 99 U/L (38-126); Anion Gap 5 mmol/L (8-16); Aspartate Amino Transferase 29 U/L (17-59); Bilirubin,Total 1.3 mg/dL (0.2-1.3); Blood Urea Nitrogen 20 mg/dL (9-20); Carbon Dioxide 25 mmol/L (22-30); Chloride 108 mmol/L (98-107); Cholesterol 169 mg/dL (0-200); Estimated Glomerular Filt Rate > 60; Glucose 103 mg/dL (65-110); HDL Direct 83 mg/dL; Potassium 3.5 mmol/L (3.4-5.0); Sodium 138 mmol/L (137-145); Triglycerides 89 mg/dL (<150)
[2022-12-11 08:37] LABS: LDL Cholesterol Direct 63 mg/dL
== END 2022-12-11 07:03 | disposition home or self-care (01) ==
PROVIDERS: PCP Emergency Medicine; Visit Provider Emergency Medicine
DX: E78.5 Hyperlipidemia, unspecified (principal)
CPT/HCPCS: 36415; 80053; 80061

== ENCOUNTER 2023-02-10 09:47 | Outpatient (CLI) | payer MEDICARE, OTHER, SELFPAY ==
--- NOTE | ~2023-02-10 | CT_ITS ---
EXAMINATION: CTA chest DATE: 02/10/2023 10:23 INDICATION: Thoracic aortic ectasia. TECHNIQUE: Computed tomographic angiography (CTA) of the chest was performed with 100 mL Omnipaque-35 0 intravenous contrast. Automated exposure control and iterative reconstruction technique were employ ed. The dose-length product was 372.89 mGy-cm. Maximum intensity projection 3D-reconstructions of the aorta and other arteries were constructed by the technologist on a separate workstation. COMPARISON: Chest CT 06/21/2020 FINDINGS: There is mild atelectasis bilaterally. There is a 4 mm nodule in right upper lobe, likely b enign. There is a 2 mm nodule left upper lobe, likely benign. No pleural effusion. The heart size is normal. No pericardial effusion. There is a left chest wall pacer with leads in the right atrium and right ventricle. There is a 4.1 cm cyst in right kidney. The aorta measures 4.2 cm at the sinuses of Valsalva, 3.2 cm at the sinotubular junction, 4.1 cm in the mid ascending aorta, 3.2 cm at the aortic isthmus, and 3.2 cm in the mid descending aorta. There is severe cervical spondylosis and mild thora cic spondylosis. There is mild chronic height loss of T8. IMPRESSION: 1. Stable ectasia of ascending aorta measuring up to 4.2 cm at the sinuses of Valsalva. Reviewed, dictated and finalized at location E. IMPRESSION: 1. Stable ectasia of ascending aorta measuring up to 4.2 cm at the sinuses of V alsalva.
[2023-02-10 10:17] LABS: Estimated Glomerular Filt Rate > 60
== END 2023-02-10 09:48 | disposition home or self-care (01) ==
LOC: ANHIMG 09:49
PROVIDERS: PCP Emergency Medicine; Visit Provider Internal Medicine Cardiovascular Disease
DX: I77.810 Thoracic aortic ectasia (principal)
CPT/HCPCS: 71275; Q9967

== ENCOUNTER 2023-05-31 14:01 | Emergency (ER) | payer MEDICARE, OTHER, SELFPAY ==
[2023-05-31 14:17] VITALS: BP 166/102; PULSE 79; RESP 16; TEMP 37.1; O2SAT 97
--- NOTE | 2023-05-31 14:56 | ED.URI ---
HPI - URI/Sore Throat General Chief Complaint: Upper Respiratory Infection Stated Complaint: cold ,cough Time Seen by Provider: 05/31/23 14:25 Source: patient Mode of arrival: ambulatory Limitations: no limitations History of Present Illness HPI Narrative: 73 yo M presents with c/o cough, chest congestion for 2 wks. Afebrile. Denies CP and SOB. Taking dayquil/nyquil to treat symptoms. States not getting worse but cough just not getting better. Recently travel to [facility], had cough prior to traveling. All systems reviewed and negative except as noted above. Related Data Home Medications Medication Instructions Recorded Confirmed ryxfftbl-xl-ftuwx 300 mcg-K 60 1 tablet PO DAILY 06/23/19 05/31/23 mcg-lycop 600 mcg-lutein 300 mcg tablet (Centrum Silver Men) aspirin 81 mg tablet,delayed 81 mg PO DAILY 11/29/19 05/31/23 release Allergies Allergy/AdvReac Type Severity Reaction Status Date / Time No Known Allergies Allergy Verified 05/31/23 14:23 Review of Systems Review of Systems: CONSTITUTIONAL: Denies fever, chills, or sweats. EYES: Denies visual changes, redness, or discharge. ENT: Denies rhinorrhea, congestion, sore throat, or otalgia. CARDIOVASCULAR: Denies chest pain, palpitations, or edema. RESPIRATORY: Reports cough, chest congestion. Denies dyspnea. GASTROINTESTINAL: Denies abdominal pain, nausea, vomiting, or diarrhea. GENITOURINARY: Denies dysuria or hematuria. SKIN: Denies rash or itching. MUSCULOSKELETAL: Denies back pain, joint pain, or myalgia. NEUROLOGIC: Denies headache, numbness, or weakness. PSYCHIATRIC: Denies anxiety or depression. All other systems reviewed are negative, except as documented in HPI. [facility] Past Medical History Medical History Acute serous otitis media of left ear Arthritis Arthritis ASHD (arteriosclerotic heart disease) Chronic maxillary sinusitis Decreased hearing of both ears Fall HLD (hyperlipidemia) 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 Impacted cerumen of right ear Knee pain, left Left foot pain Osteoarthritis cervical spine Pain in left ear Plantar fasciitis of left foot Positive colorectal cancer screening using Cologuard test Preoperative clearance RBBB Restless leg syndrome Rotator cuff tear, left Scapho-lunate dissociation Seasonal allergic rhinitis due to pollen Shoulder pain, left Skin lesion of face Transmural acute inferior myocardial infarction, initial hospitalization Ventricular fibrillation Vision abnormalities Vitamin D deficiency Surgical History Surgical History No significant past surgical history Family History Family History Mother Patient's mother is in good health, Onset Age: 82 Sibling Patient's sister is in good health, Onset Age: 56 Patient's brother is in good health, Onset Age: 68 Father Family history of diabetes mellitus in first degree relative, Onset Age: 87 Patient's father is Social History Social History Smoking packs per day: 1 Smoking cigarettes per day: 20.0 Years smoked: 10 Smoking pack-years: 10.00 Smoking status: Former smoker Tobacco type: cigarettes Smoking end date: 04/26/79 Alcohol intake: former Substance use: never Substance use type: does not use Current Housing: Decline to Answer Concerned About Future Housing: Decline to Answer Difficulty Paying Gas/Electric Bills: Decline to Answer Difficulty Paying for Meds: Decline to Answer Currently Unemployed: Decline to Answer Education: Decline to Answer Difficulty w/ Childcare or Family Care: Decline to Answer Living arrangements: alone Gender identity (if verbalized by the patient): Male Spiritual care concerns: No
== END 2023-05-31 14:43 | disposition home or self-care (01) ==
PROVIDERS: Emergency Provider Nurse Practitioner Family; PCP Emergency Medicine
DX: J06.9 Acute upper respiratory infection, unspecified (principal); Z87.891 Personal history of nicotine dependence; I25.2 Old myocardial infarction; E78.5 Hyperlipidemia, unspecified; G25.81 Restless legs syndrome; I25.10 Atherosclerotic heart disease of native coronary artery without angina pectoris; Z95.810 Presence of automatic (implantable) cardiac defibrillator; M47.812 Spondylosis without myelopathy or radiculopathy, cervical region
CPT/HCPCS: 99213; G0463

== ENCOUNTER 2023-06-07 06:58 | Outpatient (CLI) | payer MEDICARE, OTHER, SELFPAY ==
[2023-06-07 08:12] LABS: Alanine Aminotransferase 21 U/L (6-50); Albumin Level 4.2 g/dL (3.5-5.1); Alkaline Phosphatase 95 U/L (38-126); Anion Gap 5 mmol/L (8-16); Aspartate Amino Transferase 33 U/L (17-59); Bilirubin,Total 0.9 mg/dL (0.2-1.3); Blood Urea Nitrogen 29 mg/dL (9-20); Calcium 9.3 mg/dL (8.4-10.2); Carbon Dioxide 29 mmol/L (22-30); Chloride 106 mmol/L (98-107); Cholesterol 222 mg/dL (0-200); Estimated Glomerular Filt Rate > 60; Glucose 109 mg/dL (65-110); HDL Direct 62 mg/dL; Potassium 3.8 mmol/L (3.4-5.0); Sodium 140 mmol/L (137-145); Triglycerides 97 mg/dL (<150)
[2023-06-07 08:23] LABS: LDL Cholesterol Direct 117 mg/dL
[2023-06-07 08:38] LABS: Prostate Specific Antigen 2.9 ng/mL (< OR = 4.0)
[2023-06-07 08:40] LABS: Vitamin D 25 Hydroxy 35.6 ng/mL
== END 2023-06-07 06:59 | disposition home or self-care (01) ==
PROVIDERS: PCP Emergency Medicine; Visit Provider Emergency Medicine
DX: E78.5 Hyperlipidemia, unspecified (principal); E55.9 Vitamin D deficiency, unspecified; Z12.5 Encounter for screening for malignant neoplasm of prostate; I25.10 Atherosclerotic heart disease of native coronary artery without angina pectoris
CPT/HCPCS: 36415; 80053; 80061; 82306; 84153; G0103

== ENCOUNTER 2023-09-02 13:43 | Outpatient (CLI) | payer MEDICARE, OTHER, SELFPAY ==
--- NOTE | ~2023-09-02 | XR_ITS ---
Supine and upright views of the abdomen Clinical history: Kidney stone Findings: Bowel gas pattern is nonspecific. No evidence for obstruction or free air. No abnormal mass lesion or calcification is seen. Osseous structures are intact. Impression: No significant abnormality is seen. Reviewed, dictated and finalized at [facility]. Impression: No significant abnormality is seen.
== END 2023-09-02 13:44 | disposition home or self-care (01) ==
PROVIDERS: PCP Emergency Medicine; Visit Provider Urology
DX: N20.0 Calculus of kidney (principal)
CPT/HCPCS: 74018

== ENCOUNTER 2023-12-18 07:03 | Outpatient (CLI) | payer MEDICARE, OTHER, SELFPAY ==
[2023-12-18 07:34] LABS: Alanine Aminotransferase 22 U/L (6-50); Albumin Level 4.6 g/dL (3.5-5.1); Alkaline Phosphatase 94 U/L (38-126); Anion Gap 9 mmol/L (4-12); Aspartate Amino Transferase 30 U/L (17-59); Bilirubin,Total 1.1 mg/dL (0.2-1.3); Blood Urea Nitrogen 23 mg/dL (9-20); Calcium 9.8 mg/dL (8.4-10.2); Carbon Dioxide 28 mmol/L (22-30); Chloride 105 mmol/L (98-107); Cholesterol 222 mg/dL (0-200); Estimated Glomerular Filt Rate > 60; Glucose 110 mg/dL (65-110); HDL Direct 92 mg/dL; Potassium 4.8 mmol/L (3.4-5.0); Sodium 142 mmol/L (137-145); Triglycerides 113 mg/dL (<150)
[2023-12-18 07:45] LABS: LDL Cholesterol Direct 98 mg/dL
[2023-12-18 09:01] LABS: Vitamin D 25 Hydroxy 28.9 ng/mL
== END 2023-12-18 07:04 | disposition home or self-care (01) ==
LOC: ANHLAB 07:09
PROVIDERS: PCP Emergency Medicine; Visit Provider Emergency Medicine
DX: E55.9 Vitamin D deficiency, unspecified (principal); E78.5 Hyperlipidemia, unspecified
CPT/HCPCS: 36415; 80053; 80061; 82306

== ENCOUNTER 2024-04-28 07:24 | Outpatient (CLI) | payer MEDICARE, OTHER, SELFPAY ==
[2024-04-28 08:46] LABS: Alanine Aminotransferase 46 U/L (6-50); Albumin Level 4.3 g/dL (3.5-5.1); Alkaline Phosphatase 103 U/L (38-126); Anion Gap -1 mmol/L (4-12); Aspartate Amino Transferase 55 U/L (17-59); Bilirubin,Total 0.6 mg/dL (0.2-1.3); Blood Urea Nitrogen 21 mg/dL (9-20); Calcium 9.3 mg/dL (8.4-10.2); Carbon Dioxide 33 mmol/L (22-30); Chloride 110 mmol/L (98-107); Cholesterol 215 mg/dL (0-200); Estimated Glomerular Filt Rate > 60; Glucose 101 mg/dL (65-110); HDL Direct 50 mg/dL; Sodium 142 mmol/L (137-145); Triglycerides 116 mg/dL (<150)
[2024-04-28 08:57] LABS: LDL Cholesterol Direct 115 mg/dL
[2024-04-28 09:48] LABS: Vitamin D 25 Hydroxy 35.5 ng/mL
== END 2024-04-28 07:25 | disposition home or self-care (01) ==
PROVIDERS: PCP Emergency Medicine; Visit Provider Emergency Medicine
DX: E78.5 Hyperlipidemia, unspecified (principal); E55.9 Vitamin D deficiency, unspecified
CPT/HCPCS: 36415; 80053; 80061; 82306

== ENCOUNTER 2024-08-01 07:49 | Outpatient (CLI) | payer MEDICARE, OTHER, SELFPAY ==
--- OUTSIDE RECORDS SUMMARY | 2024-08-01 07:53 | XMS_ITS | Encounter Summary ---
Author Organization [facility] Address [address] [place] [address] Care Team Providers Care Clinical Auditor Name Role Phone Devin Mckinney MD Primary Care Provider Encounter Details Date Type Department Care Team (Late st Contact Info) Description 01/06/2023 Lab Requisition [facility] - DermPath Lab [address] [facility] [place] [id number] Ayden Pearl MD [address] [facility] [place] [address] Social History Tobacco Use Types Packs/Day Years Used Date Smoking Tobacco: Never Assessed Sex and Gender Information Value Date Recorded Sex Assigned at Not on file Gender Identity Not on file Sexual Orientation Not on file documented as of this encounter Plan of Treatment Not on file documented as of this encounter Procedures Procedure Name Priority Date/Time Associated Diagnosis Comments DERMATOPATHOLOGY Routine 01/05/2023 12:0 0 AM CDT documented in this encounter Results * DERMATOPATHOLOGY (01/05/2023 12:00 AM CDT) Case Report Dermatopathology Report Case: [id number] Authorizing Provider: Ayden Pearl MD Collected: 01/05/2023 12:00 AM Ordering Location: [facility] DermPath Lab Received: 01/07/2023 06:50 AM Pathologist: Li Gresham MD Specimen: Skin, right nasofacial angle 3:31 PM CDT DERMATOPATHOLOGY LABORATORY Final Diagnosis Specimen A. SKIN, right nasofacial angle: SEBORRHEIC KERATOSIS, IRRITATED AND INFLAMED (L82.0) 3 3:31 PM CDT DERMATOPATHOLOGY LABORATORY Clinical History SK vs MM Path#[id number] 3 3:31 PM CDT DERMATOPATHOLOGY LABORATORY Gross Description Specimen A: Received is one formalin filled container labeled with the patient's name and designated right nasofacial angle. The specimen consists of a shave biopsy measuring 5x4x2 mm. Jar 0. 3 3:31 PM CDT DERMATOPATHOLOGY LABORATORY Microscopic Description Specimen A. SKIN, right nasofacial angle: Sections show acanthosis, papillomatosis, hyperkeratosis, and squamous eddies. There is a lymphohistiocytic infiltrate within the papillary dermis. 3:31 PM CDT DERMATOPATHOLOGY LABORATORY Disclaimer An external and internal positive and negative controls are appropriate for the histochemical, immunohistochemical and immunofluorescence stain(s) in this case (if any), except where stated explicitly. The performance characteristics of the stain(s) cited in this report were developed and its performance characteristic determined by the Dermatopathology Laboratory at [facility], directed by Dr. Vaishali Galvan. These tests need not be, and therefore are not, approved by the [place] Food and Drug Administration. The tests are used for clinical purposes. Billing Codes Specimen Charges Stain Charges 38569 1 3 3:31 PM CDT DERMATOPATHOLOGY LABORATORY Embedded Images 3 3:31 PM CDT DERMATOPATHOLOGY LABORATORY Pathology/Cytolog y TISSUE SPECIMEN FROM SKIN / Unknown 01/05/2023 01/07/2023 6:50 AM CDT Ayden Pearl MD LAB - PATHOLOGY/CYTO LOGY ORDERABLES DERMATOPATHOLOGY LABORATORY [facility] - Department of Dermatology [facility] [address] [place] [address], [address] [phone] documented in this encounter Visit Diagnoses Not on filedocumented in this encounter Care Teams Clinical Auditor Relationship Specialty Start Date End Date Devin Mckinney [facility] [address] [facility] [address] [address] PCP - General 10/07/21 documented as of this encounter
--- OUTSIDE RECORDS SUMMARY | 2024-08-01 07:53 | XMS_ITS | Clinical Summary ---
Author Organization [facility] Address [address] 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
--- OUTSIDE RECORDS SUMMARY | 2024-08-01 07:53 | XMS_ITS | Continuity of Care Document ---
Author Name [facility] Organization [facility] Care Team Providers Care Asphalt Distributor Tender Name Role Phone [facility] Unavailable Unavailable Problems Combined list of problems from Department of Defense and Veterans Affairs facilities. It does not include entries that were removed or entered in error. Problem Status Onset Date Problem Type Date of Resolution Comments Source Customer Contact Representative/Injury Preven Active Condition [facility] Elevated blood pressure reading without diagnosis of hypertension (ICD-9-CM 796. Active Condition [facility] Allergies, Adverse Reactions, Alerts Combined list of allergies from Department of [facility] and [facility] facilities. It does not include entries that were removed or entered in error. Substance Category Reaction Severity Reaction type Status Date Reported Comments [facility] Propensity to adverse reactions to drug (finding) Tongue swelling, Lip swelling, Delirium, Numbness, Muscle weakness active 6 [facility] Immunizations Combined list of available immunizations from the Department of [facility] and [facility] facilities. Immunization Series Date Given Administered By Site Reaction Lot Number CVX Code Drug Hourly Associate Status Comments Source INFLUENZA, UNSPECIFIED FORMULATION 2012 88 complet ed [facility] HEP A-HEP B 1 2006 104 complet ed [facility] TD(ADULT) UNSPECIFIED FORMULATION 2005 139 complet ed 10/28 AT [facility]
--- OUTSIDE RECORDS SUMMARY | 2024-08-01 07:53 | XMS_ITS | Clinical Summary ---
Author Organization [facility] [employer] Address [address] [place] [address] Care Team Providers Care Associate Account Executive Name Role Phone Devin Mckinney MD Primary Care Provider [phone] Source Comments [facility] [employer],non-owned Affiliates and Associated Physician Practices is amultiple site organization consisting of ambulatory clinics and hospital sitesin [place], [place], [place] and [place]. This disclosure is being madepursuant to the Care Everywhere program and may not contain all information available regarding this patient. Last updated 18.[facility] [employer] Social History Tobacco Use Types Packs/Day Years Used Date Smoking Tobacco: Never Assessed Sex and Gender Information Value Date Recorded Sex Assigned at Not on file Gender Identity Not on file Sexual Orientation Not on file Plan of Treatment Health Maintenance Due Date Last Done Comments COLOGUARD (AGES 45-75) - COL ON CA SCREENING 1949 COLON MONITORING 1949 COLONOSCOPY - COLON CA SCREENING 1949 CT COLONOGRAPHY - COLON CA SCREENING 1949 Colorectal Cancer Screening 1949 FIT - COLON CA SCREENING 1949 FLEX SIG - COLON CA SCREENING 1949 LIPID TESTING 1949 MEDICARE AWV 12 MONTHS 1949 HEPATITIS C SCREENING 02/09/1967 DTAP/TDAP/TD VACCINES (1 - Tdap) 02/14/1968 PNEUMOCOCCAL VACCINE 50+ (1 of 1 - PCV) 1999 ZOSTER VACCINE (1 of 2) 1999 COVID-19 VACCINE ( - 2023-2 5 season) 2023 INFLUENZA VACCINE (#1) 2023 Respiratory Syncytial Virus (RSV) Vaccine Pt: or over 60 yrs (1 - 1-dose 75+ series) 02/14/2024 DEPRESSION SCREENING 04/26/2024 HEPATITIS B VACCINE Aged Out No longe r eligible based on patient's age to complete this topic HIB VACCINE Aged Out No longer eligi ble based on patient's age to complete this topic HPV VACCINE Aged Out No longer eligi ble based on patient's age to complete this topic MENINGOCOCCAL (Group B) VACC INE SHARED DECISION-MAKING Aged Out No longer eligibl e based on patient's age to complete this topic MENINGOCOCCAL GROUPS A/C/Y/W VACCINE Aged Out No longer eligible b ased on patient's age to complete this topic Care Teams Associate Account Executive Relationship Specialty Start Date End Date Devin Mckinney MD [address] [place] [address] 2 [place], [place] [id number] [facility] - General 10/07/21
[2024-08-07 15:01] VITALS: BMI 24.3
--- NOTE | 2024-08-07 15:01 | P.SLEEP_ITS ---
Sleep Study - Home Unattended Date of Study: 08/01/24 Ordering Provider: Fam Nicholas APRN Interpreting Provider: Sherita Hawkins, DO Home Sleep Study Type: Watch PAT Height: 1.78 m Weight: 77.111 kg Body Mass Index: 24.3 Neck Circumference (inches): 15.5 [place]: 2 Reason for Sleep Study Snoring, daytime hypersomnia Sleep History The patient is a 74-year-old male that had a sleep study ordered by the [facility] group for evaluation of sleep apnea. The patient denies awakening from sleep short of breath. He denies awakening at night with heartburn, belching or cough. He constantly snores loudly enough that others complain. He denies having trouble sleeping when he has a cold. He denies waking up gasping for air throughout the night. He frequently has breathing problems at night observed by himself or others. He denies sweating excessively at night. He denies having heart palpitations or irregular heartbeats during the night. He occasionally falls asleep during the day but never while driving. He denies sleep paralysis and cataplexy. He denies having trouble at school or work due to sleepiness. He rarely experiences vivid dreamlike scenes upon awakening or falling asleep. He denies feeling afraid of going to sleep. He rarely has nightmares. He constantly remembers his dreams. He occasionally has thoughts racing through his mind. He denies feeling sad, depressed or anxious. He denies having muscular tension. He denies noticing parts of his body jerk. He frequently kicks during the night. He frequently has crawling and aching feelings in his legs but rarely has leg pain during the night. He denies awakening with morning jaw pain. He is frequently bothered by pain during the day but never awakened by pain during the night. He frequently wakes up feeling stiff in the morning. He rarely wakes up with sore or achy muscles. He rarely wakes up with pain in the neck, spine and other joints. He goes to bed between 11:30 p.m. to midnight on both weekdays and weekends. the amount of time it takes for him to fall asleep is variable. He does not typically wake up throughout the night. He wakes up between 7-730 a.m. on both weekdays and weekends. He typically gets 6-7 hours of sleep per night. He will stay in bed for 5-10 minutes after waking up in the morning. He currently lives alone. He denies consuming any caffeinated beverages within 2 hours of bedtime. He denies engaging in physical exercise before bedtime. He denies reading before falling asleep. He will occasionally watch television before falling asleep. He will occasionally take naps in afternoon or the evening and they are refreshing. He consumes 2 cups of caffeinated beverage per day. He denies tobacco, alcohol and recreational drug use. [facility] Past Medical History Medical History Respiratory tract congestion with cough Acute serous otitis media of left ear Arthritis Chronic maxillary sinusitis Decreased hearing of both ears Impacted cerumen of right ear Left foot pain Pain in left ear Plantar fasciitis of left foot Positive colorectal cancer screening using Cologuard test Seasonal allergic rhinitis due to pollen Skin lesion of face Vitamin D deficiency Preoperative clearance Vision abnormalities Rotator cuff tear, left Scapho-lunate dissociation Knee pain, left Shoulder pain, left Fall HLD (hyperlipidemia) ASHD (arteriosclerotic heart disease) 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 Ventricular fibrillation Transmural acute inferior myocardial infarction, initial hospitalization Arthritis Restless leg syndrome RBBB Osteoarthritis cervical spine Surgical History Surgical History No significant past surgical history Family History Family History Mother Patient's mother is in good health, Onset Age: 82 Sibling Patient's sister is in good health, Onset Age: 56 Patient's brother is in good health, Onset Age: 68 Father Family history of diabetes mellitus in first degree relative, Onset Age: 87 Patient's father is Social History Social History Smoking packs per day: 1 Smoking cigarettes per day: 20.0 Years smoked: 10 Smoking pack-years: 10.00 Smoking status: Former smoker Tobacco type: cigarettes Smoking end date: 04/26/79 Alcohol intake: former Substance use: never Substance use type: does not use Lack of Transportation: No Lack of Food: Never True Current Housing: Decline to Answer Concerned About Future Housing: Decline to Answer Difficulty Paying Gas/Electric Bills: Decline to Answer Difficulty Paying for Meds: Decline to Answer Currently Unemployed: Decline to Answer Education: Decline to Answer Difficulty w/ Childcare or Family Care: Decline to Answer Living arrangements: alone Gender identity (if verbalized by the patient): Male Spiritual care concerns: No Medications Home Medications ?Medication ?Instructions ?Recorded ?Confirmed ?Type kereyqvi-ct-rdomh 300 mcg-K 60 1 tablet PO DAILY 06/23/19 08/01/24 History mcg-lycop 600 mcg-lutein 300 mcg tablet (Centrum Silver Men) aspirin 81 mg tablet,delayed 81 mg PO DAILY 11/29/19 08/01/24 History release atorvastatin 80 mg tablet 80 mg PO DAILY #90 tabs 05/25/22 08/01/24 Rx sildenafil 50 mg tablet See Rx Instructions .Route 04/17/24 08/01/24 Rx .COMPLEX #30 tabs metoprolol succinate 25 mg See Rx Instructions .Route 07/19/24 08/01/24 Rx tablet,extended release 24 hr .COMPLEX #45 tabs temazepam 15 mg capsule 15 mg PO QHS PRN sleep 60 days #60 08/03/24 Rx caps Sleep Procedure The sleep study was completed using EpiEPT a technically adequate device with seven channels: peripheral arterial tone, actigraphy, body position, snore, respiratory movement, pulse oximetry, sleep staging, and heart rate. Prior to using the device, the patient received verbal and written instructions for its application and was provided with the help desk phone number for additional telephonic instruction with 24-hour availability of qualified personnel to answer questions. The study was scored using CMS guidelines. Sleep Architecture The total recording time is 6 hrs, 56 min. The total sleep time is 5 hrs, 40 min. Sleep latency is 6 minutes. REM latency is 171 minutes. The patient had 18 episodes of waking. Sleep architecture shows 17.9% deep sleep, 62.5% light sleep, and (as % Total Sleep Time) showed NREM (Light 62.5%; Deep 17.9%), and a 19.6% stage REM. The patient spent 55.2% of total sleep time in the supine position. Sleep efficiency was 81.73. Respiratory Analysis The overall AHI (pAHI 3%:) is 51.8. The central AHI is 2.6. The AHI was 47.3 in NREM and 70.6 in REM sleep. The AHI was 60.1 in Supine and 41.1 in Non-supine sleep. Percent of Lance Guido respirations is 0.0. Oximetry Data The oxygen desaturation index (HEATHER 4%:) is 34.5. The mean saturation is 91%, and the lowest saturation is 64%. Time spent with saturation < 88% is 31.5 minutes. Snoring Profile Snoring average intensity is 44 dB. The patient snored above 45 decibels for 126.5 minutes, 37.2% of sleep time. Cardiac Profile The average pulse rate is 59 beats per minutes. The lowest pulse rate is 37 bpm. The highest pulse rate reported is 88 bpm. Atrial fibrillation was not detected. Premature beats occur 3.4 per minute. Assessment and Plan Assessment and Plan (1) CHANO (obstructive sleep apnea): Code(s): G47.33 - Obstructive sleep apnea (adult) (pediatric) Status: Acute Assessment and Plan: The patient had an overall AHI 31.0 with desaturation down to 64%. This is consistent with severe sleep apnea. The patient spent 31.5 minutes, 9.3% of total recording time with an oxygen saturation under 88%. Due to the severity of the patient's sleep apnea as well as the amount of time spent hypoxemic, AutoPAP is not appropriate. I recommend that the patient have a CPAP titration with the use of a hypnotic to ensure we obtain enough sleep data find an optimal pressure setting. The patient's sleep history is somewhat suggestive of Restless Leg Syndrome. I recommend that the patient have a serum ferritin drawn for evaluation of iron deficiency anemia. If the patient has a serum ferritin less than 75 ng/mL, I recommend starting a daily iron supplement and a Vitamin C supplement for better absorption. Data The data obtained during this sleep study is adequate for interpretation. Certification This sleep study has been reviewed by a board certified sleep medicine physician.
== END 2024-08-02 09:59 | disposition home or self-care (01) ==
LOC: ANHCSM 07:51
PROVIDERS: PCP Emergency Medicine; Visit Provider Nurse Practitioner Family
DX: G47.33 Obstructive sleep apnea (adult) (pediatric) (principal); G47.00 Insomnia, unspecified
CPT/HCPCS: 95800

== ENCOUNTER 2024-12-05 06:49 | Outpatient (CLI) | payer MEDICARE, OTHER, SELFPAY ==
--- OUTSIDE RECORDS SUMMARY | 2024-12-05 06:51 | XMS_ITS | Clinical Summary ---
Author Organization [facility] Address [address] [facility] [place] [address] Care Team Providers Care Gis Developer Name Role Phone Devin Mckinney MD Primary Care Provider [phone] Source Comments [facility],non-owned Affiliates and Associated Physician Practices is amultiple site organization consisting of ambulatory clinics and hospital sitesin [place], [place], [place] and [place]. This disclosure is being madepursuant to the Care Everywhere program and may not contain all information available regarding this patient. Last updated 18.[facility] Social History Tobacco Use Types Packs/Day Years Used Date Smoking Tobacco: Never Assessed Sex and Gender Information Value Date Recorded Sex Assigned at Not on file Legal Sex Male 4:49 PM CDT Gender Identity Not on file Sexual Orientation [...] VACCINE (1 of 2) 1999 COVID-19 VACCINE (1 - 2023-2 5 season) 2023 Respiratory Syncytial Virus (RSV) Vaccine Pt: or over 60 yrs (1 - 1-dose 75+ series) 02/14/2024 DEPRESSION SCREENING 04/26/2024 INFLUENZA VACCINE (#1) 2024 HEPATITIS B VACCINE Aged Out No longe [...] on patient's age to complete this topic Insurance MEDICARE [facility] MEDICARE Care Teams Gis Developer Relationship Specialty [place] [address] [place] [id number] PCP - General 10/07/21
--- OUTSIDE RECORDS SUMMARY | 2024-12-05 06:51 | XMS_ITS | Continuity of Care Document ---
Author Name [facility] Organization [facility] Care Team Providers Care Hand Spinner Name Role Phone [facility] Unavailable Unavailable Problems Combined list of problems from Department of [facility] and [facility] facilities. It does not include entries that were removed or entered in error. Problem Status Onset Date Problem Type Date of Resolution Comments Source Green Building Architect/Injury Preven Active Condition [facility] Elevated blood pressure reading without diagnosis of hypertension (ICD-9-CM 796. Active Condition [facility] NORMAL PRE-EMPLOYMENT SCREENING EXAMINATION Inactive Condition Pt is a 56 yo WM normotensive, suspect that he is pre-hypertensi ve, thus diet and exercise recommended as modalities. Warned about risks of untreated HTN. To continue to monitor at home. F/u for complete exam in 1 year. [facility]aling Traumatic Fx Lower Leg Inactive Condition healing lt tuft fx [facility] FRACTURE PHALANGES OF FOOT CLOSED Active Condition [facility] struck accidentally by falling object Active Condition [facility] Allergies, Adverse Reactions, Alerts Combined list of allergies from [facility] and [facility] facilities. It does not include entries that were removed or entered in error. Substance Category Reaction Severity Reaction type Status Date Reported Comments Source [facility] Propensity to adverse reactions to drug (finding) Tongue swelling, Lip swelling, Delirium, Numbness, Muscle weakness active 6 [facility] Immunizations Combined list of available immunizations from the Department of [facility] and [facility] facilities. Immunization Series Date Given Administered By Site Reaction Lot Number CVX Code Drug Dimensional Inspector Status Comments Source INFLUENZA, UNSPECIFIED FORMULATION 2012 88 complet ed [facility] HEP A-HEP B 1 2006 104 complet ed [facility] TD(ADULT) UNSPECIFIED FORMULATION 2005 139 complet ed 10/28 AT [facility] Encounters Combined list of: 1) Encounters from Department of Veterans Affairs facilities going backup to the last 18 months, not all VA inpatient encounters are included; 2) Encounters from the Department of Defense facilities going backup to 280 months. Location Location Details Encounter Type Encounter Number Reason For Visit Attending Provider ADM Date DC Date Status Disposition Source [address] [place] [address] Juanjo BALTAZAR ([facility] - [place] OUTPATIENT [id number] left 1st toe fx ASHU SERNA F 11/04 Released w/o Limitations [address] [place] [address] Juanjo BALTAZAR ([facility] Orthope [place]) [address] [place] [address] Juanjo BALTAZAR ([facility]) OUTPATIENT [id number] 1st left toe fractur e ASHU SERNA F 11/21 Released w/o Limitations [address] [place] [address] Juanjo BALTAZAR ([facility] [place] [address] [place] [address] Juanjo BALTAZAR ([facility])(Sco tt [facility] [place] OUTPATIENT [id number] Eval High htn letter from [place] Employm RAJ Rodriguez 03/29 Released w/o Limitations [address] [place] [address] Juanjo BALTAZAR ([facility]S cott [facility] [place]) Procedures Combined list of: 1) Procedures from Department of Veterans Affairs facilities going back up to thelast 18 months, not all VA non-surgical procedures are included; 2) All procedures from the Department of Defense facilities. Procedure Procedure Type Code Date Perfomer Comments Emelia pérez Closed Treatment Of Fractured Toe Closed Treatment Of Fractured Toe [id number] 11/05/2004 GIL BAKER [facility] CLOSED TREATMENT OF FRACTURE, PHALANX OR PHALANGES, OTHER THAN GREAT TOE; WITHOUT MANIPULATION, EACH 11/03/2004 [facility] CLOSED TREATMENT OF FRACTURE, PHALANX OR PHALANGES, OTHER THAN GREAT TOE; WITHOUT MANIPULATION, EACH 11/01/2004 [facility] Social History Combined list of available smoking, tobacco, and other social history from Department of Defense and Veterans Affairs facilities. Social History Type Response Date Comment Sourc e This section is an empty social history section. [employer]
--- OUTSIDE RECORDS SUMMARY | 2024-12-05 06:51 | XMS_ITS | Encounter Summary ---
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 Name Role Phone Devin Mckinney MD Primary Care Provider Encounter Details Date Type Department Care Team (Late st Contact Info) Description 01/06/2023 Lab Requisition [facility] - DermPath Lab [address] [place] [id number] Ayden Pearl MD [address] [place] [address] Social History Tobacco Use Types Packs/Day Years [...] AM CDT) Case Report Dermatopathology Report Case: [id number] Authorizing Provider: Ayden Pearl MD Collected: 01/05/2023 12:00 AM Ordering Location: [facility] DermPath Lab Received: 01/07/2023 06:50 AM Pathologist: Li Gresham MD Specimen: Skin, right nasofacial angle 09/15/202 3 3:31 PM CDT DERMATOPATHOLOGY LABORATORY Final Diagnosis Specimen A. SKIN, right nasofacial angle: SEBORRHEIC KERATOSIS, IRRITATED AND INFLAMED (L82.0) 3 3:31 PM CDT DERMATOPATHOLOGY LABORATORY at 1531 CDT Clinical History SK vs MM Path#[id number] 3 3:31 PM CDT DERMATOPATHOLOGY LABORATORY Gross [...] a lymphohistiocytic infiltrate within the papillary dermis. 3 3:31 PM CDT DERMATOPATHOLOGY LABORATORY Disclaimer An external and internal positive and negative controls are appropriate for the histochemical, immunohistochemical and immunofluorescence stain(s) in this case (if any), except where stated explicitly. The performance characteristics of the stain(s) cited in this report were developed and its performance characteristic determined by the Dermatopathology Laboratory at [facility], directed by Dr. Vaishali Galvan. These tests need not be, and therefore are not, approved by the [place] Food and Drug Administration. The tests are used for clinical purposes. Billing Codes Specimen Charges Stain Charges 66682 1 3 3:31 PM CDT DERMATOPATHOLOGY LABORATORY Embedded Images 3 3:31 PM CDT DERMATOPATHOLOGY LABORATORY Pathology/Cytolog y TISSUE SPECIMEN FROM SKIN / Unknown 01/05/2023 01/07/2023 6:50 AM CDT us Ayden Pearl MD LAB - PATHOLOGY/CYTOLOGY ORDER MARIALUISA Final Result DERMATOPATHOLOGY LABORATORY [facility] - Department of Dermatology [address], [address] [phone] documented in this encounter Visit Diagnoses Not on filedocumented in this encounter Care Teams Tank Builder And Erector Relationship Specialty Start Date End Date Devin Mckinney MD [address] [facility] [address] [place] [id number] PCP - General 10/07/21 documented as of this encounter
--- OUTSIDE RECORDS SUMMARY | 2024-12-05 06:51 | XMS_ITS | Clinical Summary ---
Author Organization [employer] [facility] Address [address] 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
--- NOTE | 2024-12-26 11:37 | WPDSLEEPSTUD ---
Sleep Study Date of Study: 12/05/24 Ordering Provider: Fam Nicholas APRN Interpreting Physician: Adia Keith MD Sleep Study Type: CPAP Titration Height: 1.68 m Weight: 76.975 kg Body Mass Index: 27.3 Neck Circumference (inches): 15.5 [place]: 2 Reason for Sleep Study * 08/01/2024; Home sleep test showing obstructive sleep apnea AHI 31 and hypoxemia, lowest saturation 64%. He returns for CPAP titration. * 06/12/19 [facility] echo: EF 50%, dilated aortic root at 4.4 cm.; this is the most recent echo result in the system Sleep History This history is from his 08/01/2024 sleep questionnaire. Mannie Elaine is a 74-year-old male that had home sleep test in July for chornic insomnia, loud snoring and non-restorative sleep. He has had chronic mixed insomnia since around 1999. 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 He goes to bed around midnight and wakes around 6:30am-7am. It can take about 1 hour of longer to fall asleep most nights. He does have nighttime awakenings. He is not refreshed about half the time when he wakes. He does not wake with morning headaches. He feels tired during the day and may take a catnap of around 30 minutes which may help. The patient denies awakening from sleep short of breath. He denies awakening at night with heartburn, belching or cough. He constantly snores loudly enough that others complain. He denies having trouble sleeping when he has a cold. He denies waking up gasping for air throughout the night. He frequently has breathing problems at night observed by himself or others. He denies sweating excessively at night. He denies having heart palpitations or irregular heartbeats during the night. He occasionally falls asleep during the day but never while driving. He denies sleep paralysis and cataplexy. He denies having trouble at school or work due to sleepiness. He rarely experiences vivid dreamlike scenes upon awakening or falling asleep. He denies feeling afraid of going to sleep. He rarely has nightmares. He constantly remembers his dreams. He occasionally has thoughts racing through his mind. He denies feeling sad, depressed or anxious. He denies having muscular tension. He denies noticing parts of his body jerk. He frequently kicks during the night. He frequently has crawling and aching feelings in his legs but rarely has leg pain during the night. He denies awakening with morning jaw pain. He is frequently bothered by pain during the day but never awakened by pain during the night. He frequently wakes up feeling stiff in the morning. He rarely wakes up with sore or achy muscles. He rarely wakes up with pain in the neck, spine and other joints. He goes to bed between 11:30 p.m. to midnight on both weekdays and weekends. the amount of time it takes for him to fall asleep is variable. He does not typically wake up throughout the night. He wakes up between 7-730 a.m. on both weekdays and weekends. He typically gets 6-7 hours of sleep per night. He will stay in bed for 5-10 minutes after waking up in the morning. He currently lives alone. He denies consuming any caffeinated beverages within 2 hours of bedtime. He denies engaging in physical exercise before bedtime. He denies reading before falling asleep. He will occasionally watch television before falling asleep. He will occasionally take naps in afternoon or the evening and they are refreshing. He consumes 2 cups of caffeinated beverage per day. He denies tobacco, alcohol and recreational drug use. [facility] Past Medical History Medical History Respiratory tract congestion with cough Acute serous otitis media of left ear Arthritis Chronic maxillary sinusitis Decreased hearing of both ears Impacted cerumen of right ear Left foot pain Pain in left ear Plantar fasciitis of left foot Positive colorectal cancer screening using Cologuard test Seasonal allergic rhinitis due to pollen Skin lesion of face Vitamin D deficiency Preoperative clearance Vision abnormalities Rotator cuff tear, left Scapho-lunate dissociation Knee pain, left Shoulder pain, left Fall HLD (hyperlipidemia) ASHD (arteriosclerotic heart disease) 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 Ventricular fibrillation Transmural acute inferior myocardial infarction, initial hospitalization Arthritis Restless leg syndrome RBBB Osteoarthritis cervical spine Surgical History Surgical History No significant past surgical history Family History Family History Mother Patient's mother is in good health, Onset Age: 82 Sibling Patient's sister is in good health, Onset Age: 56 Patient's brother is in good health, Onset Age: 68 Father Family history of diabetes mellitus in first degree relative, Onset Age: 87 Patient's father is Social History Social History Smoking packs per day: 1 Smoking cigarettes per day: 20.0 Years smoked: 10 Smoking pack-years: 10.00 Smoking status: Former smoker Tobacco type: cigarettes Smoking end date: 04/26/79 Alcohol intake: former Substance use: never Substance use type: does not use Lack of Transportation: No Lack of Food: Never True Current Housing: Decline to Answer Concerned About Future Housing: Decline to Answer Difficulty Paying Gas/Electric Bills: Decline to Answer Difficulty Paying for Meds: Decline to Answer Currently Unemployed: Decline to Answer Education: Decline to Answer Difficulty w/ Childcare or Family Care: Decline to Answer Living arrangements: alone Gender identity (if verbalized by the patient): Male Spiritual care concerns: No Medications Home Medications ?Medication ?Instructions ?Recorded ?Confirmed ?Type dgkwqeop-vj-ezgym 300 mcg-K 60 1 tablet PO DAILY 06/23/19 11/07/24 History mcg-lycop 600 mcg-lutein 300 mcg tablet (Centrum Silver Men) aspirin 81 mg tablet,delayed 81 mg PO DAILY 11/29/19 11/07/24 History release atorvastatin 80 mg tablet 80 mg PO DAILY #90 tabs 05/25/22 11/07/24 Rx sildenafil 50 mg tablet See Rx Instructions .Route 04/17/24 11/07/24 Rx .COMPLEX #30 tabs atenolol 25 mg tablet 12.5 mg (1/2 x 25 mg) PO DAILY #45 11/07/24 11/07/24 Rx tabs temazepam 15 mg capsule 15 mg PO QHS PRN sleep #30 caps 12/18/24 Rx Sleep Procedure A full CPAP polysomnogram using the TerraPower multi-channel system recorded the standard physiologic parameters including EEG, EOG, submentalis EMG, anterior tibialis EMG, EKG, body position, nasal and oral airflow using nasal pressure sensor and thermistor. Respiratory parameters of chest and abdominal movements were recorded with Respiratory Inductance Plethysmography belts. Oxygen saturation was recorded by pulse oximetry. Video monitoring was also performed. Sleep stages, periodic limb movements, and EEG arousals were scored in 30 second epochs according to the criteria of the AASM Scoring Manual. The Apnea-Hypopnea Index was calculated using CMS guidelines for definition of hypopnea while scoring respiratory events. The patient was started on CPAP using a medium ResMed AirFit F30 under the nose mask with heated humidity, initial pressure was CPAP 4 cm, titrated to 5 cm, 6 cm, 7 cm, 8 cm was the final pressure. at CPAP 8 cm, the patient spent 168.5 minutes in bed. Most of the time was awake, 151 minutes. The patient had 16 minutes of non-REM. There was no REM during the study. The sleep efficiency at CPAP 8 was 9.5%. The apnea-hypopnea index was 0. The lowest saturation was 90%. At CPAP 7 the patient spent 32.5 minutes in bed, 7 minutes awake, 25.5 minutes in non-REM. Sleep efficiency was 78.5% and the residual apnea-hypopnea index was 2.4. Sleep Architecture The total recording time was 366.9 minutes. The total sleep time was 140.0 minutes. Sleep latency was 4.3 minutes. REM latency was 41.5 minutes. Sleep efficiency was 38.2%. The patient had 33 awakenings for an awakening index of 14.1. Wake after Sleep Onset time was 221.5 minutes. The patient spent 25.0 minutes, 17.9% of total sleep time in Stage N1. The patient spent 114.0 minutes, 81.4% in Stage N2. The patient spent no time in Stage N3. The patient spent 1.0 minutes, 0.7% in Stage REM. Respiratory Analysis The patient had 7 hypopneas, 6 obstructive apneas, no mixed apneas, and 1 central apnea for an overall Apnea Hypopnea Index of 6.0 events per hour. The REM Apnea Hypopnea Index was 0. The NREM Apnea Hypopnea Index was 6.0. The patient had a Central Apnea Hypopnea Index of 0.4. There were no Respiratory Effort Related Arousals. The Respiratory Disturbance Index is 8.6 events per hour. There was no evidence of Lance-Guido Respirations. Arousals There were 60 total arousals for an arousal index of 25.7. There were 37 spontaneous arousals for an index of 15.9. There were 9 arousals due to respiratory events for an index of 3.9. There were 7 arousals due to periodic limb movements for an index of 3.0. There were 7 arousals due to isolated limb movements for an index of 3.0. Periodic Limb Movements The patient had 12 isolated limb movements with an index of 5.1. The patient had 67 periodic limb movements with index of 28.7. Patient had a total of 79 limb movements with a total limb movement index of 33.9. Oximetry Data The patient had an average oxygen saturation of 91.3% in sleep with a minimum oxygen saturation of 85% and a maximum oxygen saturation of 95%. The patient had 12 oxygen desaturations that were 4% or greater resulting in an Oxygen Desaturation Index of 5.1. The patient spent 3.7 minutes, 1.1% of total sleep time with an oxygen saturation below 88%. Snoring Profile During titration, snoring was mild during the night, eliminated during the titration Cardiac Profile The EKG showed normal sinus rhythm. The patient had an average pulse rate of 60.1 bpm with a minimum pulse rate of 58 bpm and a maximum pulse rate of 72 bpm. No arrhythmias noted. EEG Profile Unremarkable, no evidence of seizures. Assessment and Plan Assessment and Plan (1) CHANO (obstructive sleep apnea): Code(s): G47.33 - Obstructive sleep apnea (adult) (pediatric) Status: Acute Assessment and Plan: This full night CPAP titration on 12/05/2024 showed improvement in events however the patient had a difficult time remaining asleep during the night. No optimal pressure was identified. After 2:10 a.m. he was mostly awake. There was no REM during this study. He had little sleep on CPAP 8. He had constant changes in position during the night. At CPAP 8 cm, he had a low sleep efficiency, however he did sleep with an AHI of 0. I recommend that this patient be prescribed CPAP 8 cm using a medium ResMed AirFit F30 under the nose mask with heated humidity. He may require sedative hypnotic during the initial stages of using CPAP 8. He will also need to adhere to sleep hygiene measures. Auto PAP is not a great idea with this patient due to his Lance-Guido respiration. He did not have central apneas on this study. If he fails to improve on this therapy, consider full night titration with a sleep aid and no naps on the day of the study. He had very little sleep during the study and this was not ideal given the severity of his problems. CPAP should be used with all episodes of sleep. Compliance should be reviewed within 31-60 days of starting therapy for usage greater than 4 hours per night greater than 70% of the nights. The patient should be asked about symptoms such as excessive daytime sleepiness, quality of sleep, decreased nocturia, increased mental functioning such as memory, mood, and concentration. He will need to make changes in his sleep schedule, particularly avoiding naps. He may need to restrict the amount of time that he spends in bed to avoid lying in bed awake which can increase anxiety about falling asleep. Using CPAP may help him with sleep quality. He did not have significant central events. He does have a history of cardiac dysfunction with CAD, history of a defibrillator, ventricular fibrillation and an anterior MT. See below. (2) Inadequate sleep hygiene: Code(s): Z72.821 - Inadequate sleep hygiene Status: Acute Assessment and Plan: He had low sleep efficiency of 38%, most of the night was spent awake. He did not have enough sleep to adequately titrate his CPAP. He has had longstanding chronic insomnia. Patient's with insomnia, especially when this is lasted for many years, may benefit by observing sleep hygiene measures. Cognitive behavioral therapy, CBT-I is also an option to help with improving the amount of sleep at night. Recommendations to improve sleep quality include: ? Practice a bedtime routine and keep the same sleep schedule including bedtime and wake up time, even on the weekends. Consistency makes it much easier to fall asleep and wake easily. ? If you have trouble sleeping at night, avoid naps, especially in the late afternoon. However, short naps lasting approximately 20 minutes can help alleviate daytime fatigue, sleepiness, and even provide cognitive benefit. Naps longer than 30 minutes can cause sleep inertia, a period of reduced alertness and cognitive performance after waking. ? Exercise daily. ? Maintain a sleep environment conducive to sleep. The bedroom should be comfortably cool. In population studies, nocturnal environmental light and noise significantly impact sleep quality and quantity. Use of blackout curtains, ear plugs, or sound machines may help promote an optimal sleep environment for individuals with sleep disruptions due to environmental stimuli. ? Sleep on a comfortable mattress and pillows. ? Regular bright light exposure in the mornings may help to maximize alertness and maintain a regular circadian rhythm. Studies in extreme latitudes where sunlight is minimal in the winter have found that an hour of exposure to white light in the morning helped subjects go to sleep earlier and wake earlier. Exposure to blue light in the morning may have more robust effects on the stability of the circadian rhythm and has been shown to improve daytime fatigue and sleepiness. ? Avoid cigarettes, caffeine, and heavy meals in the evening. While alcohol use does seem to reduce the time it takes to fall asleep, studies have reported that evening alcohol intake can cause more waking time or light sleep in the second half of the night and reduce self-reported sleep quality. Evening nicotine is associated with lower sleep efficiency and more awake time during the night. ? Wind down with quiet activities that may promote sleep, such as reading with a dim light. Avoid use of electronics at least 30 minutes before habitual bedtime and in the middle of the night if nocturnal awakenings occur. The blue light emitted from computer screens and hand-held devices can suppress natural melatonin production, resulting in difficulty falling asleep; however, the exact duration of use and intensity of lighting that cause this effect are variable in the literature. ? If you cannot sleep, do not look at a clock. Go into another room and do something relaxing until you feel drowsy enough to fall asleep again. Then return to bed. (3) Lance-Guido breathing: Code(s): R06.3 - Periodic breathing Status: Acute Assessment and Plan: This patient had Lance-Guido breathing noted during the night without central apneas. He has history of ischemic heart disease, Medtronic ICD placed on 06/16/2019, and the most recent echo result in the system 06/12/19 [facility] echo: EF 50%, dilated aortic root at 4.4 cm. This is sufficient underlying medical comorbidities to explain his Lance-Guido breathing. This is a new diagnosis for him. Consider repeat echo or locating more recent echo results. Data The data obtained during this sleep study is adequate for interpretation. Certification This sleep study has been reviewed by a board certified sleep medicine physician.
[2025-01-02 10:28] VITALS: BMI 27.3
== END 2024-12-06 05:59 | disposition home or self-care (01) ==
PROVIDERS: PCP Emergency Medicine; Visit Provider Nurse Practitioner Family
DX: G47.33 Obstructive sleep apnea (adult) (pediatric) (principal); G47.00 Insomnia, unspecified
CPT/HCPCS: 95811

== ENCOUNTER 2025-01-24 09:38 | Emergency (ER) | payer MEDICARE, OTHER, SELFPAY ==
--- NOTE | ~2025-01-24 | XR_ITS ---
EXAMINATION: XR chest 2V DATE: 01/24/2025 10:16 INDICATION: One-day productive cough TECHNIQUE: frontal and lateral views of the chest were obtained. COMPARISON: Chest radiograph dated 01/13/[address] dated 02/10/2023 FINDINGS: The lungs remain clear with no focal airspace opacities, pulmonary edema, pleural effusion or pneumothorax. The cardiomediastinal silhouette is normal. Dual lead pacemaker/AICD seen with leads projecting over the expected locations of the right atrium and right ventricle. IMPRESSION: 1. No acute cardiopulmonary disease. Reviewed, dictated and finalized at location A.
--- NOTE | 2025-01-24 09:43 | ED.URI ---
HPI - URI/Sore Throat General Chief Complaint: Upper Respiratory Infection Stated Complaint: cough Time Seen by Provider: 01/24/25 09:43 Source: patient Mode of arrival: ambulatory Limitations: no limitations History of Present Illness HPI Narrative: Patient is a 74-year-old male who presents with 1 day of cough and congestion. States he got back from the [facility] on Wednesday and yesterday was around a [place] field that was being harvested. Patient states he took Tylenol this morning for low-grade fever and help both the fever and the cough. Patient states he has only coughed 5 times since taking the Tylenol. Denies any congestion, shortness of breath, ear pain, sore throat, nausea, vomiting, diarrhea. Related Data Home Medications ?Medication ?Instructions ?Recorded ?Confirmed ?Last Taken ?Type [id number]-vg-[id number] 300 mcg-K 60 1 tablet PO DAILY 06/23/19 11/07/24 03/01/20 History mcg-lycop 600 mcg-lutein 300 mcg tablet (Centrum Silver Men) aspirin 81 mg tablet,delayed 81 mg PO DAILY 11/29/19 11/07/24 03/01/20 History release Allergies Allergy/AdvReac Type Severity Reaction Status Date / Time No Known Allergies Allergy Verified 01/24/25 10:08 Review of Systems Review of Systems: All systems reviewed & are unremarkable except as noted in HPI and below Constitutional: Constitutional: Denies chills, Denies fatigue, Denies fever(s), Denies headache(s), Denies malaise and Denies weakness Eyes: Eyes: Denies blurry vision, Denies itchy eyes and Denies loss of vision ENT: Denies otalgia, Denies headache(s), Reports nasal congestion, Denies sinus pain and Denies sore throat Cardiovascular: Cardiovascular: Denies chest pain, Denies irregular heart rhythm and Denies dyspnea Respiratory: Respiratory: Reports cough and Denies dyspnea Gastrointestinal: Gastrointestinal: Denies abdominal pain, Denies diarrhea, Denies nausea and Denies vomiting Musculoskeletal: Musculoskeletal: Denies back pain, Denies myalgias and Denies arthralgias Integumentary/Breasts: Skin/Breast: Denies pruritus and Denies rash Neurologic: Denies headache(s), Denies loss of vision and Denies weakness Psychiatric: Psychiatric: Reports no additional psychiatric complaints Endocrine: Endocrine: Denies fatigue Allergic/Immunologic: Allergic/Immunologic: Denies itchy eyes PMFSH Past Medical History Medical History Respiratory tract congestion with cough Acute serous otitis media of left ear Arthritis Chronic maxillary sinusitis Decreased hearing of both ears Impacted cerumen of right ear Left foot pain Pain in left ear Plantar fasciitis of left foot Positive colorectal cancer screening using Cologuard test Seasonal allergic rhinitis due to pollen Skin lesion of face Vitamin D deficiency Preoperative clearance Vision abnormalities Rotator cuff tear, left Scapho-lunate dissociation Knee pain, left Shoulder pain, left Fall HLD (hyperlipidemia) ASHD (arteriosclerotic heart disease) 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 Ventricular fibrillation Transmural acute inferior myocardial infarction, initial hospitalization Arthritis Restless leg syndrome RBBB Osteoarthritis cervical spine Surgical History Surgical History No significant past surgical history Family History Family History Mother Patient's mother is in good health, Onset Age: 82 Sibling Patient's sister is in good health, Onset Age: 56 Patient's brother is in good health, Onset Age: 68 Father Family history of diabetes mellitus in first degree relative, Onset Age: 87 Patient's father is Social History Social History Smoking packs per day: 1 Smoking cigarettes per day: 20.0 Years smoked: 10 Smoking pack-years: 10.00 Smoking status: Former smoker Tobacco type: cigarettes Smoking end date: 04/26/79 Alcohol intake: former Substance use: never Substance use type: does not use Lack of Transportation: No Lack of Food: Never True Current Housing: Decline to Answer Concerned About Future Housing: Decline to Answer Difficulty Paying Gas/Electric Bills: Decline to Answer Difficulty Paying for Meds: Decline to Answer Currently Unemployed: Decline to Answer Education: Decline to Answer Difficulty w/ Childcare or Family Care: Decline to Answer Living arrangements: alone Gender identity (if verbalized by the patient): Male Spiritual care concerns: No Comments At time of signature, agree with nursing past medical, surgical, social and family history. There is no relevant family history pertinent to the presenting complaint. Exam Const: General: cooperative, healthy appearing, comfortable, no acute distress and well nourished Nutritional Appearance: well nourished Orientation/consciousness: patient oriented x3 Limitations: no limitations HENMT: Head: normal to inspection, normocephalic and atraumatic Ears: hearing grossly normal bilaterally, external ears normal, TM's normal bilaterally, EAC's normal and no periauricular adenopathy Face/Nose/Sinus: Normal external nose present, Abnormal mucous membranes and turbinates present erythematous bilateral and diffuse, normal facial exam, sinuses nontender and face symmetric Face and sinus: normal facial exam, sinuses nontender and face symmetric Mouth: Yes Normal oral and palatal mucosa present, Yes lip normal, Yes tongue normal, Yes Normal salivary glands and ducts present, Yes oropharynx normal and Yes moist mucous membranes Teeth and gingiva: dentition normal Throat: posterior oropharynx normal, tonsils normal and uvula midline Eyes: General: appearance normal, both eyes and all related structures Alignment and Position: alignment normal and position normal Periorbital: periorbital findings normal Eyelids: eyelids normal Pupils: Equal, round and reactive pupils present Neck: Neck: normal visual inspection, full ROM, no lymphadenopathy and supple Chest: Chest palpation & inspection: normal inspection of the chest and normal palpation of entire chest wall Resp: Effort & Inspection: normal respiratory effort and able to speak in complete sentences Auscultation: clear to auscultation bilaterally, no crackles, no rales, no rhonchi and no wheezes Cardio: Rate: regular rate Rhythm: regular rhythm Heart sounds: S1 normal heart sound present and S2 normal heart sound present GI: Inspection: normal to inspection Skin: General skin exam: normal color and no rashes or lesions noted Neuro: General: patient oriented x3 and moves all extremities Cranial nerves: Yes Equal, round and reactive pupils present Speech: normal speech Gait exam (Neuro): Normal gait present Extrem: General: normal to inspection, full ROM and no edema Psych: Appearance: grossly normal and well kempt Mental Status: mental status grossly normal Speech and movement: Normal speech and movement present Affect: normal affect Attitude: cooperative Thought process: Normal thought process present Course Course Emergency Course: Discharge instructions reviewed with patient, as well as provided in writing per nursing staff. The instructions also include specific and strict return/GO TO THE ER as well as f/u information. All questions have been answered, and the patient deny any further questions with discharge and discharge plan. Portions of this record may have been created with voice recognition software Level of Care: Express Care Visit Vital Signs Vital signs: Vital Signs Temperature 37.2 C 01/24/25 09:46 Pulse Rate 68 01/24/25 09:46 Respiratory Rate 18 01/24/25 09:46 Blood Pressure 110/67 01/24/25 09:46 Pulse Oximetry 97 01/24/25 09:46 Oxygen Delivery Room Air 01/24/25 09:46 Temperature 37.2 C 01/24/25 09:46 Pulse Rate 68 01/24/25 09:46 Respiratory Rate 18 01/24/25 09:46 Blood Pressure 110/67 01/24/25 09:46 Pulse Oximetry 97 01/24/25 09:46 Oxygen Delivery Room Air 01/24/25 09:46 Reviewed MDM - URI/Sore Throat MDM Narrative Medical decision making narrative: Pt well hydrated appearing, in no respiratory distress, hemodynamically stable. Recommend supportive care. The patient is stable at time of discharge the clinical impression was discussed and the patient was given the opportunity to ask questions, which were addressed as completely as possible given the information available at present. Anticipatory guidance and return to care precautions were discussed and the importance of primary care follow-up was stressed and encouraged. The patient voiced understanding of the plan, indications to return, and the need for follow-up. Exam findings show no acute concerns or changes Patient is appropriate for outpatient treatment and follow-up. Differential diagnosis considered: Acosta virus, strep pharyngitis, allergic rhinitis, upper respiratory tract infection, sinusitis, rhinosinusitis, nasopharyngitis. viral pharyngitis, otitis media, otitis externa, otitis effusion, foreign body, cerumen impaction, viral syndrome, and influenza.? Medical Records Attestation: I reviewed the patient's medical records. Imaging Data Radiologist's impression: EXAMINATION: XR chest 2V DATE: 01/24/2025 10:16 INDICATION: One-day productive cough TECHNIQUE: frontal and lateral views of the chest were obtained. COMPARISON: Chest radiograph dated 01/13/[address] dated 02/10/2023 FINDINGS: The lungs remain clear with no focal airspace opacities, pulmonary edema, pleural effusion or pneumothorax. The cardiomediastinal silhouette is normal. Dual lead pacemaker/AICD seen with leads projecting over the expected locations of the right atrium and right ventricle. IMPRESSION: 1. No acute cardiopulmonary disease. Reviewed, dictated and finalized at location A. Discharge Plan Discharge Clinical Impression: Cough Qualifiers: Cough type: acute Qualified Code(s): R05.1 - Acute cough Allergic rhinitis Qualifiers: Allergic rhinitis trigger: pollen Allergic rhinitis seasonality: seasonal Qualified Code(s): J30.1 - Allergic rhinitis due to pollen Patient Disposition: Home Condition: Stable Instructions: Acute Cough (ED) Additional Instructions: Her chest x-ray was clear. Take Tessalon Perles as needed for cough For pain/fever, you may take: Tylenol 650-1000mg by mouth every 4-6 hours. Do not exceed 4000mg in 24 hours. Advil (Ibuprofen) 600 mg by mouth every 6 hours. Do not exceed 2400mg in 24 hours. 8 AM: Tylenol 11 AM: Ibuprofen 2 PM: Tylenol 5 PM: Ibuprofen 8 PM: Tylenol 11 PM: Ibuprofen 2 AM: Tylenol 5 AM: Ibuprofen -Antihistamine medication such as Benadryl/Zyrtec at night and Claritin/Anny during the day can help improve symptoms. -Use Flonase twice a day for 5 days then daily to help reduce the inflammation and dry up your sinuses. -You can also use Sudafed behind the pharmacy counter(12 or 24 hour). Be sure to drink plenty of water with these medications at least 8 ounces with every dose and it is important to drink 8 to 10 glasses of water per day. Water is a natural decongestant -Eat and drink things that are easy to swallow, like tea or soup, or popsicles. -Oral rinses such as: Salt water gargles and/or may use topical anesthetic (eg. Chloraseptic spray) or lozenges to relieve dryness or throat pain). -Frequent hand washing or hand barrel polisher inside is one of the best ways to prevent spread of infection. -Using a vaporizer or humidifier at night will also help thin secretions and help with coughing up phlegm. Call your Primary Care Doctor and make a follow-up appointment in 3 days. If your cough worsens, you develop a fever greater than 103, you develop shaking chills, a fast heartbeat, trouble breathing and/or feel you are are breathing much faster than usual, call your Primary Care Doctor or go to the ER. Patient Language: Iranian Prescriptions: New benzonatate 100 mg capsule 100 mg PO BID PRN (Reason: cough) Qty: 14 0RF fluticasone propionate [Flonase Allergy Relief] 50 mcg/actuation spray,suspension 1 spray intranasal DAILY Qty: 16 0RF Rx Instructions: administer into each nostril loratadine 10 mg tablet 10 mg PO DAILY Qty: 30 0RF No Action aspirin 81 mg tablet,delayed release (DR/EC) 81 mg PO DAILY Centrum Silver Men 300-600-300 mcg tablet 1 tablet PO DAILY atenolol 25 mg tablet 12.5 mg PO DAILY Qty: 45 2RF atorvastatin 80 mg tablet 80 mg PO DAILY Qty: 90 2RF sildenafil 50 mg tablet See Rx Instructions .ROUTE .COMPLEX Qty: 30 2RF Dose Instruction: TAKE 1 TABLET BY MOUTH DAILY NEEDED FOR SEXUAL ACTIVITY, ADMINISTER 30 MINUTES TO 4 HOURS BEFORE ACTIVITY Rx Instructions: TAKE 1 TABLET BY MOUTH DAILY NEEDED FOR SEXUAL ACTIVITY, ADMINISTER 30 MINUTES TO 4 HOURS BEFORE ACTIVITY temazepam 15 mg capsule 15 mg PO QHS PRN (Reason: sleep) Qty: 30 1RF Follow-up/Referrals: Devin Mckinney MD [Primary Care Provider, Internal Medicine] - 3 Days Time of Disposition: 10:29
[2025-01-24 09:46] VITALS: BP 110/67; PULSE 68; RESP 18; TEMP 37.2; O2SAT 97
== END 2025-01-24 10:34 | disposition home or self-care (01) ==
PROVIDERS: Emergency Provider Nurse Practitioner Family; PCP Emergency Medicine
DX: R05.1 Acute cough (principal); J30.1 Allergic rhinitis due to pollen; E78.5 Hyperlipidemia, unspecified; I25.10 Atherosclerotic heart disease of native coronary artery without angina pectoris; Z95.810 Presence of automatic (implantable) cardiac defibrillator; M19.90 Unspecified osteoarthritis, unspecified site; G25.81 Restless legs syndrome; Z79.82 Long term (current) use of aspirin; Z87.891 Personal history of nicotine dependence
CPT/HCPCS: 71046; 99213; G0463

== ENCOUNTER 2025-02-01 06:57 | Outpatient (CLI) | payer MEDICARE, OTHER, SELFPAY ==
[2025-02-01 08:21] LABS: Alanine Aminotransferase 48 U/L (6-50); Albumin Level 4.1 g/dL (3.5-5.1); Alkaline Phosphatase 107 U/L (38-126); Anion Gap 5 mmol/L (4-12); Aspartate Amino Transferase 46 U/L (17-59); Bilirubin,Total 0.9 mg/dL (0.2-1.3); Blood Urea Nitrogen 17 mg/dL (9-20); Calcium 9.0 mg/dL (8.4-10.2); Carbon Dioxide 30 mmol/L (22-30); Chloride 104 mmol/L (98-107); Cholesterol 194 mg/dL (0-200); Estimated Glomerular Filt Rate > 60; Glucose 93 mg/dL (65-110); HDL Direct 45 mg/dL; Potassium 4.1 mmol/L (3.4-5.0); Sodium 139 mmol/L (137-145); Total Protein 7.6 g/dL (6.3-8.2); Triglycerides 89 mg/dL (<150)
[2025-02-01 08:57] LABS: Prostate Specific Antigen 3.4 ng/mL (< OR = 4.0)
== END 2025-02-01 06:58 | disposition home or self-care (01) ==
LOC: ANHLAB 06:58
PROVIDERS: PCP Emergency Medicine; Visit Provider Emergency Medicine
DX: E78.5 Hyperlipidemia, unspecified (principal); Z12.5 Encounter for screening for malignant neoplasm of prostate; E55.9 Vitamin D deficiency, unspecified
CPT/HCPCS: 36415; 80053; 80061; 82306; 84153; G0103

== ENCOUNTER 2025-04-16 08:14 | Outpatient (CLI) | payer MEDICARE, OTHER, SELFPAY ==
--- OUTSIDE RECORDS SUMMARY | 2025-04-16 08:32 | XMS_ITS | Clinical Summary ---
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
--- OUTSIDE RECORDS SUMMARY | 2025-04-16 08:32 | XMS_ITS | Encounter Summary ---
Author Organization [facility] Address [address] [place] [address] Care Team Providers Care Practice Billing Associate Name Role Phone Devin Mckinney MD Primary Care Provider [phone] Encounter Details Date Type Department Care Team (Late st Contact Info) Description 01/06/2023 Lab Requisition [facility] - Derm[facility] Lab [address] [place] [id number] Ayden Pearl MD [address] [address] Social History Tobacco Use Types Packs/Day Years [...] AM CDT) Case Report Dermatopathology Report Case: [id number] Authorizing Provider: Ayden Pearl MD Collected: 01/05/2023 12:00 AM Ordering Location: [facility] Received: 01/07/2023 06:50 AM Pathologist: Li Gresham MD Specimen: Skin, right nasofacial angle 3 3:31 PM CDT DERMATOPATHOLOGY LABORATORY Final Diagnosis Specimen A. SKIN, right nasofacial angle: SEBORRHEIC KERATOSIS, IRRITATED AND INFLAMED (L82.0) 3 3:31 PM CDT DERMATOPATHOLOGY LABORATORY at 1531 CDT Clinical History SK vs MM Path#[id number] 3 3:31 PM CDT DERMATOPATHOLOGY LABORATORY Gross [...] within the papillary dermis. 3 3:31 PM T DERMATOPATHOLOGY LABORATORY Disclaimer An external and internal positive and negative controls are appropriate for the histochemical, immunohistochemical and immunofluorescence stain(s) in this case (if any), except where stated explicitly. The performance characteristics of the stain(s) cited in this report were developed and its performance characteristic determined by the Dermatopathology Laboratory at [facility], directed by Dr. Vaishali Galvan. These tests need not be, and therefore are not, approved by the [place] Food and Drug Administration. The tests are used for clinical purposes. Billing Codes Specimen Charges Stain Charges 84902 1 3 3:31 PM CDT DERMATOPATHOLOGY LABORATORY Embedded Images 3 3:31 PM CDT DERMATOPATHOLOGY LABORATORY Pathology/Cytolog y TISSUE SPECIMEN FROM SKIN / Unknown 01/05/2023 01/07/2023 6:50 AM CDT us Ayden Pearl MD LAB - PATHOLOGY/CYTOLOGY ORDER MARIALUISA Final Result DERMATOPATHOLOGY LABORATORY [facility] - Department of Dermatology [address], [address] [phone] documented in this encounter Visit Diagnoses Not on filedocumented in this encounter Care Teams Practice Billing Associate Relationship Specialty Start Date End Date Devin Mckinney MD [facility] [address] [address] PCP - General 10/07/21 documented as of this encounter
--- OUTSIDE RECORDS SUMMARY | 2025-04-16 08:32 | XMS_ITS | Clinical Summary ---
Author Organization [facility] Address [address] [place] [address] Care Team Providers Care Food Preparation Kitchen Aide Name Role Phone Devin Mckinney MD Primary Care Provider [phone] Source Comments [facility],non-owned Affiliates and Associated Physician Practices is amultiple site organization consisting of ambulatory clinics and hospital sitesin [place], [place], [place] and [place]. This disclosure is being madepursuant to the Care Everywhere program and may not contain all information available regarding this patient. Last updated 18.[facility] Social History Tobacco Use Types Packs/Day Years Used Date Smoking Tobacco: Never Assessed Sex and Gender Information Value Date Recorded Sex Assigned at Not on file Legal Sex Male 4:49 PM CDT Gender Identity Not on file Sexual Orientation Not on file Plan of Treatment Health Maintenance Due Date Last Done Comments MEDICARE AWV 12 MONTHS 1950 HEPATITIS C SCREENING 02/09/1967 DTAP/TDAP/TD VACCINES (1 - Tdap) 02/14/1968 PNEUMOCOCCAL VACCINE 50+ (1 of 1 - PCV) 1999 ZOSTER VACCINE (1 of 2) 1999 Respiratory Syncytial Virus (RSV) Vaccine Pt: or over 60 yrs (1 - 1-dose 75+ series) 02/14/2024 DEPRESSION SCREENING 04/26/2024 COVID-19 VACCINE (1 - 2024-2 6 season) 2024 INFLUENZA VACCINE (#1) 2024 HEPATITIS B VACCINE [...] age to complete this topic Insurance MEDICARE [facility] MEDICARE Care Teams Food Preparation Kitchen Aide Relationship Specialty Start Date End Date Devin Mckinney MD [address] [place] [address] [phone] PCP - General 10/07/21
[2025-04-16 09:16] LABS: Alanine Aminotransferase 27 U/L (6-50); Albumin Level 4.6 g/dL (3.5-5.1); Alkaline Phosphatase 94 U/L (38-126); Anion Gap 8 mmol/L (4-12); Aspartate Amino Transferase 34 U/L (17-59); Bilirubin,Total 0.9 mg/dL (0.2-1.3); Blood Urea Nitrogen 24 mg/dL (9-20); Calcium 9.3 mg/dL (8.4-10.2); Carbon Dioxide 26 mmol/L (22-30); Chloride 108 mmol/L (98-107); Cholesterol 246 mg/dL (0-200); Estimated Glomerular Filt Rate > 60; Glucose 107 mg/dL (65-110); HDL Direct 73 mg/dL; Potassium 4.2 mmol/L (3.4-5.0); Sodium 142 mmol/L (137-145); Total Protein 8.1 g/dL (6.3-8.2); Triglycerides 66 mg/dL (<150)
== END 2025-04-16 08:15 | disposition home or self-care (01) ==
PROVIDERS: PCP Emergency Medicine; Visit Provider Emergency Medicine
DX: E78.5 Hyperlipidemia, unspecified (principal); E55.9 Vitamin D deficiency, unspecified
CPT/HCPCS: 36415; 80053; 80061; 82306